=== PATIENT | male | born 1955 | race Caucasian/White ===

== ENCOUNTER 2019-01-01 10:10 | Inpatient (IN) | payer MEDICARE ==
[~2019-01-01] VITALS: Ht 185.4 cm; Wt 70.3 kg
[~2019-01-01 10:10] MED LIST: ASCO1500 PO; Aspirin PO; CALCIUM PO; CELE200C PO; CHOL10003 PO; CHOL500016 PO; FERR325T58 PO; HYDR-2680 PO; Hydrocodone Bit/Acetaminophen PO; Hydrocodone/Acetaminophen PO; MULT-18 PO; MULT-658 PO; OXYC1TAB15 PO; SERT25TA PO; SERT50TA8 PO; VIT1CAPS12 PO; VITA100022 PO; VITA400T4 PO; WARF-78 PO
[2019-01-01] MEDS ORDERED: DEXAMETHASONE 4 MG TABLET PO ONE (11:00)
--- NOTE | 2019-01-01 11:09 | PHYS DOC ---
Past Medical History Past Medical History: Other Additional Past Medical Histor: CHRONIC BACK PAIN, RIGHT MACULAR DEGENERATION DISEASE Past Surgical History: Tonsillectomy Additional Past Surgical Histo: RIGHT SHOULDER, HERNIA, HYDROCELE Smoking: Cigarettes Alcohol Use: Heavy Additional Information: 6 PACK OF BEER A DAY Drug Use: Marijuana Adult General Chief Complaint Chief Complaint: RINGING IN EARS HPI HPI Patient is a 63 year old male who presents with ringing in the ears and dizziness. 3 days ago he began to experience ringing in his hears, right ear fullness and right hearing loss. Those symptoms persisted until this morning when they became accompanied by dizziness and the sensation that "my head is swimming". He describes the dizziness as being disoriented and that the room spins. These symptoms are worsened by movement. He denies any URI symptoms recently. Patient is not experienced headache, numbness or tingling, weakness, chest pain, palpitations or nausea at this time. Review of Systems Review of Systems Constitutional: Denies fever or chills [] Eyes: Denies vision changes or diplopia. [] HENT: Reports right ear fullness and loss of hearing on right. Denies nasal congestion or sore throat [] Respiratory: Denies cough or shortness of breath [] Cardiovascular: Chest pain or palpitations [] GI: Denies abdominal pain, nausea, vomiting, or diarrhea [] : Denies dysuria or hematuria [] Musculoskeletal: Denies joint pain or muscular weakness [] Neurologic: Reports vertigo, unsteady gait and loss of hearing on right. Denies headache, focal weakness or sensory changes [] Complete review of systems found to be within normal limits, except as documented in this note. Current Medications Current Medications Current Medications Medications (Trade) Dose Ordered Sig/Carlin Start Time Stop Time Status Last Admin Dose Admin Dexamethasone (Decadron) 10 mg 1X ONCE 01/01/19 11:00 01/01/19 11:01 DC 01/01/19 11:23 10 MG Diazepam (Valium) 5 mg 1X ONCE 01/01/19 14:00 01/01/19 14:01 DC 01/01/19 13:52 5 MG Meclizine HCl (Antivert) 25 mg 1X ONCE 01/01/19 11:30 01/01/19 11:31 DC 01/01/19 11:22 25 MG Sodium Chloride 1,000 ml @ 1,000 mls/hr 1X ONCE 01/01/19 11:30 01/01/19 12:29 DC 01/01/19 11:17 1,000 MLS/HR Allergies Allergies Allergies Coded Allergies Type Severity Reaction Last Updated Verified Silver Allergy Severe RASH AND BLISTERS 08/31/14 Yes copper Allergy Severe RASH AND BLISTERS 08/31/14 Yes gold Au 198 Allergy Severe RASH AND BLISTERS 08/31/14 Yes iron Allergy Severe RASH AND BLISTERS 08/31/14 Yes nickel Allergy Severe RASH AND BLISTERS 08/31/14 Yes tolnaftate Allergy Intermediate HIVES, RED RASH, RED BUMPS 08/31/14 Yes Physical Exam Physical Exam Constitutional: Well developed, well nourished, concerned about his dizziness. [] HENT: Normocephalic, atraumatic, tympanic membranes visualized b/l without erythema or effusion, oropharynx moist. [] Eyes: PERRLA, EOMI, no conjunctivitis or injection [] Neck: Supple and nontender. [] Cardiovascular:Heart rate regular rhythm, no murmur [] Lungs & Thorax: Bilateral breath sounds clear to auscultation [] Abdomen: Soft and nontender. [] Skin: Warm, dry, no erythema, no rash. [] Extremities: Radial and dorsalis pedis +2 b/l, cap refill < 2seconds. [] Neurologic: Alert and oriented, normal motor function, normal sensory function, no focal deficits noted. Krzysztof maneuver produces rotatory nystagmus.[] Psychologic: Affect normal, judgement normal, mood normal. [] Current Patient Data Vital Signs Vital Signs Date Time Temp Pulse Resp B/P (MAP) Pulse Ox O2 Delivery O2 Flow Rate FiO2 01/01/19 12:16 70 138/82 (100) 99 Room Air 01/01/19 10:17 97.7 18 97.7 Lab Values Laboratory Tests Test 01/01/19 11:20 White Blood Count 3.4 x10^3/uL (4.0-11.0) L Red Blood Count 5.10 x10^6/uL (4.30-5.70) Hemoglobin 15.1 g/dL (13.0-17.5) Hematocrit 45.9 % (39.0-53.0) Mean Corpuscular Volume 90 fL (79-100) Mean Corpuscular Hemoglobin 30 pg (25-35) Mean Corpuscular Hemoglobin Concent 33 g/dL (31-37) Red Cell Distribution Width 18.1 % (11.5-14.5) H Platelet Count 156 x10^3/uL (140-400) Neutrophils (%) (Auto) 55 % (31-73) Lymphocytes (%) (Auto) 32 % (24-48) Monocytes (%) (Auto) 12 % (0-9) H Eosinophils (%) (Auto) 0 % (0-3) Basophils (%) (Auto) 1 % (0-3) Neutrophils # (Auto) 1.9 x10^3uL (1.8-7.7) Lymphocytes # (Auto) 1.1 x10^3/uL (1.0-4.8) Monocytes # (Auto) 0.4 x10^3/uL (0.0-1.1) Eosinophils # (Auto) 0.0 x10^3/uL (0.0-0.7) Basophils # (Auto) 0.0 x10^3/uL (0.0-0.2) Sodium Level 134 mmol/L (136-145) L Potassium Level 4.7 mmol/L (3.5-5.1) Chloride Level 97 mmol/L (98-107) L Carbon Dioxide Level 27 mmol/L (21-32) Anion Gap 10 (6-14) Blood Urea Nitrogen 3 mg/dL (8-26) L Creatinine 0.7 mg/dL (0.7-1.3) Estimated GFR (Cockcroft-Gault) 113.2 BUN/Creatinine Ratio 4 (6-20) L Glucose Level 93 mg/dL (70-99) Calcium Level 9.2 mg/dL (8.5-10.1) Magnesium Level 1.9 mg/dL (1.8-2.4) Total Bilirubin 0.9 mg/dL (0.2-1.0) Aspartate Amino Transferase (AST) 127 U/L (15-37) H Alanine Aminotransferase (ALT) 74 U/L (16-63) H Alkaline Phosphatase 98 U/L (46-116) Troponin I Quantitative < 0.017 ng/mL (0.000-0.055) Total Protein 6.6 g/dL (6.4-8.2) Albumin 3.2 g/dL (3.4-5.0) L Albumin/Globulin Ratio 0.9 (1.0-1.7) L Laboratory Tests 01/01/19 11:20 Laboratory Tests 01/01/19 11:20 EKG EKG @1025: Normal sinus rhythm with rate of 69. Normal axis. No Q waves present. No ST segment elevation or depression. No T wave inversion.[] Radiology/Procedures Radiology/Procedures PROCEDURE: CT HEAD WO CONTRAST CT HEAD INDICATION: Dizziness COMPARISON: None Available. Exposure: One or more of the following individualized dose reduction techniques were utilized for this examination: 1. Automated exposure control 2. Adjustment of the mA and/or kV according to patient size 3. Use of iterative reconstruction technique TECHNIQUE: 5 mm contiguous axial images were obtained from the skull base to the vertex in both bone and soft tissue algorithm. FINDINGS: Mild bilateral periventricular white matter hypodensities likely chronic small vessel ischemic disease. No evidence of acute intracranial hemorrhage. No extra-axial fluid collections. No mass effect or midline shift. Ventricular size is appropriate. Basal cisterns are patent. No fractures identified.Mae-white differentiation is preserved.Globes and orbits are within normal limits. Mild mucosal thickening left maxillary sinus. IMPRESSION: No acute intracranial findings. Electronically signed by: Jam Yan MD (01/01/2019 12:02 PM) [id number][] Course & Med Decision Making Course & Med Decision Making Pertinent Labs and Imaging studies reviewed. (See chart for details) Patient is a 63 year old male who presents with tinnitus and right hearing loss for 2 days that progressed to vertigo this morning. Physical exam showed rotatory nystagmus on Krzysztof maneuver and decreased hearing on right. Test of skew negative. CT of head showed evidence of small vessel disease but no acute abnormalities. EKG was unremarkable. CBC, CMP and troponin negative. Patient was given meclizine and dexamethasone without improvement of his symptoms. Dis cussed with patient that his symptoms are likely due to a peripheral etiology of vertigo such as BPPV or labyrinthitis however it would be beneficial for him to receive further evaluation as an inpatient especially given his persistent vertigo and unsteady gait. He has a history of osteoporosis and agrees that he does not want to have another fracture from possibly falling at home. Patient requiring admission for further evaluation and treatment. Discussed with Dr. Castillo who is in agreement with admission. Discussed findings and plan with patient and family, who acknowledge understanding and agreement. [] Dragon Disclaimer Dragon Disclaimer This electronic medical record was generated, in whole or in part, using a voice recognition dictation system. Departure Departure Impression: Primary Impression: Vertigo Additional Impression: Tinnitus Disposition: 09 ADMITTED INPATIENT Admitting Physician: Other Condition: STABLE Referrals: JANETTE COLBERT MD (PCP) Problem Qualifiers Additional Impression: Tinnitus Laterality: right Qualified Codes: H93.11 - Tinnitus, right ear JOSEPH ZHOU DO January 01, 2019 11:09
[2019-01-01] MEDS ORDERED: IV NORMAL SALINE 1000ML BAG 1,000 ML IV ONE (11:30)
[2019-01-01] MEDS ORDERED: MECLIZINE HCL 12.5 MG TABLET. PO ONE (11:30)
[2019-01-01 11:34] LABS: BASO % 1 % (0-3); EOS % 0 % (0-3); HEMATOCRIT 45.9 % (39.0-53.0); HEMOGLOBIN 15.1 g/dL (13.0-17.5); LYMPH # 1.1 x10^3/uL (1.0-4.8); LYMPH % 32 % (24-48); MEAN CORPUSCULAR HEMOGLOBIN 30 pg (25-35); MEAN CORPUSCULAR HGB CONC 33 g/dL (31-37); MEAN CORPUSCULAR VOLUME 90 fL (79-100); MONO # 0.4 x10^3/uL (0.0-1.1); MONO % 12 % (0-9); NEUT # 1.9 x10^3uL (1.8-7.7); NEUT % 55 % (31-73); PLATELET COUNT 156 x10^3/uL (140-400); RED CELL DISTRIBUTION WIDTH 18.1 % (11.5-14.5); WHITE BLOOD COUNT 3.4 x10^3/uL (4.0-11.0)
[2019-01-01 11:37] LABS: CALCIUM 9.2 mg/dL (8.5-10.1); CREATININE 0.7 mg/dL (0.7-1.3); GFR 113.2; POTASSIUM 4.7 mmol/L (3.5-5.1)
[2019-01-01 11:43] LABS: ALBUMIN 3.2 g/dL (3.4-5.0); ALBUMIN/GLOBULIN RATIO 0.9 (1.0-1.7); MAGNESIUM 1.9 mg/dL (1.8-2.4); TOTAL BILIRUBIN 0.9 mg/dL (0.2-1.0); TOTAL PROTEIN 6.6 g/dL (6.4-8.2)
--- NOTE | 2019-01-01 11:53 | EKG ---
[facility] [address] [place] [address] Test Date: 2019-01-01 Test Time: 10:25:51 Pat Name: LEMUEL VEGA Department: Room: Gender: M Digital Forensic Examiner: : 1955 Requested By: JOSEPH ZHOU Order Number: [id number] Reading MD: Diego Mckee Measurements Intervals [place] Rate: 69 P: 66 CO: 174 QRS: 38 QRSD: 76 T: 49 QT: 400 QTc: 430 Interpretive Statements SINUS RHYTHM NORMAL ECG Electronically Signed On 01-23-2019 12:14:10 CDT by Diego Mckee
--- NOTE | 2019-01-01 12:05 | RAD ---
CT HEAD INDICATION: Dizziness COMPARISON: None Available. Exposure: One or more of the following individualized dose reduction techniques were utilized for this examination: 1. Automated exposure control 2. Adjustment of the mA and/or kV according to patient size 3. Use of iterative reconstruction technique TECHNIQUE: 5 mm contiguous axial images were obtained from the skull base to the vertex in both bone and soft tissue algorithm. FINDINGS: Mild bilateral periventricular white matter hypodensities likely chronic small vessel ischemic disease. No evidence of acute intracranial hemorrhage. No extra-axial fluid collections. No mass effect or midline shift. Ventricular size is appropriate. Basal cisterns are patent. No fractures identified.Mae-white differentiation is preserved.Globes and orbits are within normal limits. Mild mucosal thickening left maxillary sinus. IMPRESSION: No acute intracranial findings. Electronically signed by: Jam Yan MD (01/01/2019 12:02 PM) [id number]
[2019-01-01] MEDS ORDERED: diazePAM 5 MG TABLET PO ONE (14:00)
--- NOTE | 2019-01-01 14:21 | PDOC1 ---
History and Physical Date of Admission Date of Admission DATE: 01/01/19 TIME: 14:20 Identification/Chief Complaint Chief Complaint Dizzy, unable to walk Source Source: Patient History of Present Illness History of Present Illness Mr Cantor is a 63 year old male w/ PMHx heavy ETOH use, R wet macular degeneration, chronic LBP who presents with tinnitus and right ear hearing loss for 3 days (started Saturday) that progressed to vertigo this morning suddenly at 0430. He feels temporarily confused when this occurs as well. Physical exam showed rotatory nystagmus on Krzysztof maneuver to right and decreased hearing on right, cleaned both ears of cerumen with no improvement. Test of skew negative. CT of head showed evidence of small vessel disease but no acute abnormalities. EKG was unremarkable. CBC, CMP and troponin negative. AST and ALT elevated in 2:1 ratio. Patient was given meclizine and dexamethasone without improvement of his symptoms. Discussed with patient that his symptoms are likely due to a peripheral etiology of vertigo such as BPPV or labyrinthitis however it would be beneficial for him to receive further evaluation as an inpatient especially given his persistent vertigo and unsteady gait. He has a history of osteoporosis and agrees that he does not want to have another fracture from possibly falling at home. On further ROS he notes he has lost 20-25# over the past few months, and has been losing his appetite more lately. He is a smoker of cigars and cigarillos, stopped cigarettes about 6 years ago, drinks a 6-pack [place] light or more of beer per day and had colonoscopy over 10 years ago. Past Medical History Cardiovascular: No pertinent hx Pulmonary: No pertinent hx GI: No pertinent hx Heme/Onc: No pertinent hx Hepatobiliary: No pertinent hx Psych: No pertinent hx Musculoskeletal: low back pain Rheumatologic: No pertinent hx Infectious disease: No pertinent hx ENT: Other (Macular degeneration) Renal/: No pertinent hx Endocrine: No pertinent hx Dermatology: No pertinent hx Past Surgical History Past Surgical History: Total knee replacement (Left), Tonsillectomy Family History Family History: No Significant Social History Smoke: 1 pack per day ALCOHOL: heavy Drugs: None Current Problem List Problem List Problems Medical Problems: (1) Tinnitus Status: Acute (2) Vertigo Status: Acute Current Medications Current Medications Current Medications Dexamethasone (Decadron) 10 mg 1X ONCE PO Last administered on 01/01/19at 11:23; Start 01/01/19 at 11:00; Stop 01/01/19 at 11:01; Status DC Meclizine HCl (Antivert) 25 mg 1X ONCE PO Last administered on 01/01/19at 11:22; Start 01/01/19 at 11:30; Stop 01/01/19 at 11:31; Status DC Sodium Chloride 1,000 ml @ 1,000 mls/hr 1X ONCE IV Last administered on 01/01/19at 11:17; Start 01/01/19 at 11:30; Stop 01/01/19 at 12:29; Status DC Diazepam (Valium) 5 mg 1X ONCE PO Last administered on 01/01/19at 13:52; Start 01/01/19 at 14:00; Stop 01/01/19 at 14:01; Status DC Ondansetron HCl (Zofran) 4 mg PRN Q8HRS PRN IV NAUSEA/VOMITING; Start 01/01/19 at 14:30; Stop 01/02/19 at 14:29; Status UNV Active Scripts Active [Hydrocodone/Acetaminophen] 1 TAB Tablet 1 Tab PO PRN Q3HRS PRN Reported Percocet 5-325 Mg Tablet (Oxycodone/Acetaminophen) 1 Each Tablet 1-2 Tab PO Q4- 6HRS Iron Supplement (Ferrous Sulfate) 325 Mg Tablet 1 Tab PO DAILY Last dose given: Not taken whil in hosp. May resume at home as directed Coumadin (Warfarin Sodium) 5 Mg Tablet 1 Tab PO 1X PRN Last dose given: Next dose due: 09-04-14 5:00 p.m. Celebrex (Celecoxib) 200 Mg Capsule 200 Mg PO DAILY 30 Days Last dose given: 8:30 a.m. Next dose due: 09-04-14 8:30 a.m. Centrum Silver Tablet (Multivits-Min/Fa/Lycopene/Lut) 1 Each Tablet 1 Each PO Last dose given: 8:30 a.m. Next dose due: 09-04-14 8:30 a.m. [Calcium] 1,200 Mg PO DAILY Last dose given: 8:30 a.m. Next dose due: 09-04-14 8:30 a.m. Vitamin D3 (Cholecalciferol (Vitamin D3)) 5,000 Unit Tablet 5,000 Unit PO Last dose given: 8:30 a.m. Next dose due: 09-04-14 8:30 a.m. Preservision Areds Softgel (Vit A/Vit C/Vit E/Zinc/Copper) 1 Each Capsule 1 Each PO Not taken while in hosp. May resume at home as directed Sertraline Hcl 50 Mg Tablet 50 Mg PO HS Last dose given: 09-02-14 9:00 p.m. Next dose due: tonight Allergies Allergies: Coded Allergies: Silver (Verified Allergy, Severe, RASH AND BLISTERS, 08/31/14) METALS copper (Verified Allergy, Severe, RASH AND BLISTERS, 08/31/14) METALS gold Au 198 (Verified Allergy, Severe, RASH AND BLISTERS, 08/31/14) ALL METAL iron (Verified Allergy, Severe, RASH AND BLISTERS, 08/31/14) ALL METAL nickel (Verified Allergy, Severe, RASH AND BLISTERS, 08/31/14) ALL METALS tolnaftate (Verified Allergy, Intermediate, HIVES, RED RASH, RED BUMPS, 08/31/14) ROS General: YES: Fatigue, Malaise, Appetite; No: Chills, Night Sweats, Other PSYCHOLOGICAL ROS: YES: Anxiety; No: Behavioral Disorder, Concentration difficultie, Decreased libido, Depression, Disorientation, Hallucinations, Hostility, Irritablity, Memory difficulties, Mood Swings, Obsessive thoughts, Physical abuse, Sexual abuse, Sleep disturbances, Suicidal ideation, Other Eyes: No Blurry vision, No Decreased vision, No Double vision, No Dry eyes, No Excessive tearing, No Eye Pain, No Itchy Eyes, No Loss of vision, No Photophobia, No Scotomata, No Uses contacts, No Uses glasses, No Other HEENT: YES: Hearing change, Tinnitus, Vertigo; No: Heacaches, Visual Changes, Nasal congestion, Nasal discharge, Oral lesions, Sinus pain, Sore Throat, Epistaxis, Sneezing, Snoring, Vocal changes, Other ALLERGY AND IMMUNOLOGY: No: Hives, Insect Bite Sensitivity, Itchy/Watery Eyes, Nasal Congestion, Post Nasal Drip, Seasonal Allergies, Other Hematological and Lymphatic: No: Bleeding Problems, Blood Clots, Blood Transfusions, Brusing, Night Sweats, Pallor, Swollen Lymph Nodes, Other ENDOCRINE: No: Breast Changes, Galactorrhea, Hair Pattern Changes, Hot Flashes, Malaise/lethargy, Mood Swings, Palpitations, Polydipsia/polyuria, Skin Changes, Temperature Intolerance, Unexpected Weight Changes, Other Breast: No New/Changing Breast Lumps, No Nipple changes, No Nipple discharge, No Other Respiratory: No: Cough, Hemoptysis, Orthopnea, Pleuritic Pain, Shortness of breath, SOB with excertion, Sputum Changes, Stridor, Tachypnea, Wheezing, Other Cardiovascular: No Chest Pain, No Palpitations, No Orthopnea, No Paroxysmal Noc. Dyspnea, No Edema, No Lt Headedness, No Other Gastrointestinal: Yes Nausea; No Vomiting, No Abdominal Pain, No Diarrhea, No Constipation, No Melena, No Hematochezia, No Other Genitourinary: No Dysuria, No Frequency, No Incontinence, No Hematuria, No Retention, No Discharge, No Urgency, No Pain, No Flank Pain, No Other, No , No , No , No , No , No , No Musculoskeletal: Yes Gait Disturbance; No Joint Pain, No Joint Stiffness, No Joint Swelling, No Muscle Pain, No Muscular Weakness, No Pain In:, No Swelling In:, No Other Neurological: Yes Confusion, Yes Dizziness, Yes Gait Disturbance, Yes Impaired Coord/balance; No Behavorial Changes, No Bowel/Bladder ControlChng, No Headaches, No Memory Loss, No Numbness/Tingling, No Seizures, No Speech Problems, No Tremors, No Visual Changes, No Weakness, No Other Skin: No Dry Skin, No Eczema, No Hair Changes, No Lumps, No Mole Changes, No Mottling, No Nail Changes, No Pruritus, No Rash, No Skin Lesion Changes, No Other, No Acne Physical Exam General: Alert, Oriented X3, Cooperative, No acute distress HEENT: Atraumatic, PERRLA, EOMI, Mucous membr. moist/pink Lungs: Clear to auscultation, Normal air movement Heart: S1S2, RRR, no gallops, no murmurs Abdomen: Normal bowel sounds, Soft, No tenderness, No hepatosplenomegaly, No masses Male Genitals Exam: normal genitalia, normal prostate Rectal Exam: not examined Extremities: No clubbing, No cyanosis, No edema, Normal pulses, No tenderness/swelling Skin: No rashes, No breakdown, No significant lesion Neuro: Normal speech, Strength at 5/5 X4 ext, Normal tone, Sensation intact, Cranial nerves 3-12 NL, Reflexes 2+, Other (Positive R rotatory nystagmus) Psych/Mental Status: Mental status NL, Mood NL Vitals Vitals Vital Signs Date Time Temp Pulse Resp B/P (MAP) Pulse Ox O2 Delivery O2 Flow Rate FiO2 01/01/19 12:16 70 138/82 (100) 99 Room Air 01/01/19 10:17 97.7 18 97.7 Labs Labs Laboratory Tests Test 01/01/19 11:20 White Blood Count 3.4 x10^3/uL (4.0-11.0) Red Blood Count 5.10 x10^6/uL (4.30-5.70) Hemoglobin 15.1 g/dL (13.0-17.5) Hematocrit 45.9 % (39.0-53.0) Mean Corpuscular Volume 90 fL (79-100) Mean Corpuscular Hemoglobin 30 pg (25-35) Mean Corpuscular Hemoglobin Concent 33 g/dL (31-37) Red Cell Distribution Width 18.1 % (11.5-14.5) Platelet Count 156 x10^3/uL (140-400) Neutrophils (%) (Auto) 55 % (31-73) Lymphocytes (%) (Auto) 32 % (24-48) Monocytes (%) (Auto) 12 % (0-9) Eosinophils (%) (Auto) 0 % (0-3) Basophils (%) (Auto) 1 % (0-3) Neutrophils # (Auto) 1.9 x10^3uL (1.8-7.7) Lymphocytes # (Auto) 1.1 x10^3/uL (1.0-4.8) Monocytes # (Auto) 0.4 x10^3/uL (0.0-1.1) Eosinophils # (Auto) 0.0 x10^3/uL (0.0-0.7) Basophils # (Auto) 0.0 x10^3/uL (0.0-0.2) Sodium Level 134 mmol/L (136-145) Potassium Level 4.7 mmol/L (3.5-5.1) Chloride Level 97 mmol/L (98-107) Carbon Dioxide Level 27 mmol/L (21-32) Anion Gap 10 (6-14) Blood Urea Nitrogen 3 mg/dL (8-26) Creatinine 0.7 mg/dL (0.7-1.3) Estimated GFR (Cockcroft-Gault) 113.2 BUN/Creatinine Ratio 4 (6-20) Glucose Level 93 mg/dL (70-99) Calcium Level 9.2 mg/dL (8.5-10.1) Magnesium Level 1.9 mg/dL (1.8-2.4) Total Bilirubin 0.9 mg/dL (0.2-1.0) Aspartate Amino Transf (AST/SGOT) 127 U/L (15-37) Alanine Aminotransferase (ALT/SGPT) 74 U/L (16-63) Alkaline Phosphatase 98 U/L (46-116) Troponin I Quantitative < 0.017 ng/mL (0.000-0.055) Total Protein 6.6 g/dL (6.4-8.2) Albumin 3.2 g/dL (3.4-5.0) Albumin/Globulin Ratio 0.9 (1.0-1.7) Laboratory Tests Test 01/01/19 11:20 White Blood Count 3.4 x10^3/uL (4.0-11.0) Red Blood Count 5.10 x10^6/uL (4.30-5.70) Hemoglobin 15.1 g/dL (13.0-17.5) Hematocrit 45.9 % (39.0-53.0) Mean Corpuscular Volume 90 fL (79-100) Mean Corpuscular Hemoglobin 30 pg (25-35) Mean Corpuscular Hemoglobin Concent 33 g/dL (31-37) Red Cell Distribution Width 18.1 % (11.5-14.5) Platelet Count 156 x10^3/uL (140-400) Neutrophils (%) (Auto) 55 % (31-73) Lymphocytes (%) (Auto) 32 % (24-48) Monocytes (%) (Auto) 12 % (0-9) Eosinophils (%) (Auto) 0 % (0-3) Basophils (%) (Auto) 1 % (0-3) Neutrophils # (Auto) 1.9 x10^3uL (1.8-7.7) Lymphocytes # (Auto) 1.1 x10^3/uL (1.0-4.8) Monocytes # (Auto) 0.4 x10^3/uL (0.0-1.1) Eosinophils # (Auto) 0.0 x10^3/uL (0.0-0.7) Basophils # (Auto) 0.0 x10^3/uL (0.0-0.2) Sodium Level 134 mmol/L (136-145) Potassium Level 4.7 mmol/L (3.5-5.1) Chloride Level 97 mmol/L (98-107) Carbon Dioxide Level 27 mmol/L (21-32) Anion Gap 10 (6-14) Blood Urea Nitrogen 3 mg/dL (8-26) Creatinine 0.7 mg/dL (0.7-1.3) Estimated GFR (Cockcroft-Gault) 113.2 BUN/Creatinine Ratio 4 (6-20) Glucose Level 93 mg/dL (70-99) Calcium Level 9.2 mg/dL (8.5-10.1) Magnesium Level 1.9 mg/dL (1.8-2.4) Total Bilirubin 0.9 mg/dL (0.2-1.0) Aspartate Amino Transf (AST/SGOT) 127 U/L (15-37) Alanine Aminotransferase (ALT/SGPT) 74 U/L (16-63) Alkaline Phosphatase 98 U/L (46-116) Troponin I Quantitative < 0.017 ng/mL (0.000-0.055) Total Protein 6.6 g/dL (6.4-8.2) Albumin 3.2 g/dL (3.4-5.0) Albumin/Globulin Ratio 0.9 (1.0-1.7) Images Images CT head - No acute intracranial findings. VTE Prophylaxis Ordered VTE Prophylaxis Devices: Yes VTE Pharmacological Prophylaxi: Yes Assessment/Plan Assessment/Plan A/P: Vertigo - positive for BPPV on examination. PT to continue maneuvers. Will give meclizine, benadryl prn. Could also be vestibular neuronitis given his hearing loss. CT head negative, may need MRI Right hearing loss - could be neurologic, will consult neurology Unintentional weight loss - was 176# last seen in our system, 149# today. Will order CT chest/abd/pelvis Transaminitis - consistent with alcoholic hepatitis, will place on CIWA and banana bag Smoker - counseled on cessation Gait instability - needs PT for his vertigo FEN - general diet PPX - Lovenox FULL CODE Inpatient for being unable to walk, vertigo, unintentional weight loss for likely 2 midnights. SARBJIT RAM MD January 01, 2019 14:21
[2019-01-01] MEDS ORDERED: ONDANSETRON PF 4 MG/2 ML VIAL. IV PRN ×2 (14:30→16:15)
[2019-01-01 15:00] VITALS: BP 136/83
[2019-01-01] MEDS ORDERED: MECLIZINE HCL 12.5 MG TABLET. PO PRN (16:15)
[2019-01-01] MEDS ORDERED: ACETAMINOPHEN 325 MG TABLET. PO PRN (16:15)
[2019-01-01] MEDS ORDERED: diphenhydrAMINE 50 MG/ML VIAL IVP PRN (16:15)
[2019-01-01] MEDS ORDERED: oxyCODONE/APAP 5/325 1 TAB TABLET PO PRN (16:15)
[2019-01-01] MEDS ORDERED: IOHEXOL 240 MG/ML 50ML VIAL. PO ONE (17:00)
[2019-01-01] MEDS ORDERED: LORazepam 1 MG TABLET PO PRN (17:00)
[2019-01-01] MEDS ORDERED: cloNIDine HCL 0.1 MG TABLET PO PRN (17:00)
[2019-01-01] MEDS ORDERED: CONTRAST GIVEN. MC PRN (17:00)
[2019-01-01] MEDS ORDERED: IOHEXOL 300 MG/ML 100ML VIAL. IV ONE (17:00)
[2019-01-01] MEDS ORDERED: THIAMINE INJ 100 MG in IV DEXTROSE 5% 50 ML IV ONE (17:15)
--- NOTE | 2019-01-01 17:41 | PDOC2 ---
NEUROLOGY CONSULT Date of Admission Date of Admission DATE: 01/01/19 TIME: 17:28 Reason for Consult Reason for Consult: IMPRESSION: Dizziness x 1 day. Vertigo x 1 day. Ataxia x 1 day. Right side hearing loss x 3 day. Elevated hepatic enzymes. Drinking > 50 years. RECOMMENDATIONS/PLAN: Vit B1 100 mg daily. Brain MRI w/wo contrast. Lab: see orders. Treat medical diseases. Alcohol abstinence. HISTORY OF THE PRESENT ILLNESS: This is a 63-year-old male w/ PMHx heavy ETOH use/abuse about 6 bees a day since teenage age. He stated he suddenly lost hearing in his right ear 3 days ago and unable to hear since. He developed symptoms of dizziness, vertigo, gait unsteadiness, ataxia, vertigo feeling room spining and self spinning since this morning, so he came to the ER of [facility] for medical attention. He stated his symptoms became worse when he turned his head to the right side. Neurology noted consultation request after 5:00 pm. Past Medical History Cardiovascular: No pertinent hx Pulmonary: No pertinent hx GI: No pertinent hx Heme/Onc: No pertinent hx Hepatobiliary: No pertinent hx Psych: No pertinent hx Musculoskeletal: low back pain Rheumatologic: No pertinent hx Infectious disease: No pertinent hx ENT: Other (Macular degeneration) Renal/: No pertinent hx Endocrine: No pertinent hx Dermatology: No pertinent hx Past Surgical History Total knee replacement (Left), Tonsillectomy Family History No Significant Social History Smoke: 1 pack per day since teenage age, but quit smoking several years ago, and then chew tobaccos. ALCOHOL: heavy, about 6 beers a day for more than 50 years. Drugs: None Allergies Coded Allergies: Silver (Verified Allergy, Severe, RASH AND BLISTERS, 08/31/14) METALS copper (Verified Allergy, Severe, RASH AND BLISTERS, 08/31/14) METALS gold Au 198 (Verified Allergy, Severe, RASH AND BLISTERS, 08/31/14) ALL METAL iron (Verified Allergy, Severe, RASH AND BLISTERS, 08/31/14) ALL METAL nickel (Verified Allergy, Severe, RASH AND BLISTERS, 08/31/14) ALL METALS tolnaftate (Verified Allergy, Intermediate, HIVES, RED RASH, RED BUMPS, 08/31/14) MEDICATIONS: Refer to [facility] REVIEW OF SYSTEMS: Constitutional: No cachexia. Head: No traumatic brain or head injury. Skin: No edema, or rash. Ear: Hearing loss 3 days ago, tinnitus. Eyes: No vision loss or color blindness. Nose: No bleeding or purulent discharges. Hearing: Right side hearing loss. Neck: No injury. Cardiac: No VA, arrhythmia. Pulmonary: smoking in past.. GI: No GI ulcer, GI bleeding. Urinary/genital: No dysuria, incontinence, urinary retention. Endocrinologic: No cousin face, craniofacial dysmorphism, polydactyly. Skeletomuscular: No muscular atrophy, deformity. Neurological: see HP. Psychiatric: alcohol use/abuse. Otherwise, not [id number] review of systems. PHYSICAL EXAMINATION: General appearance is in subacute distress. HEENT: Normocephalic and nontraumatic. Eyes, nose, ears, and throat are unremarkable. Neck is supple. No lymphadenopathy. No crepitus. Cardiovascular: S1, S2, regular rate and rhythm. Pulmonary: Clear to auscultation bilaterally. Abdomen: Bowel sounds are positive. Abdomen is soft, nontender, and nondistended. Extremities: No rash, lesions, or edema. No restriction of range of motion NEUROLOGICAL EXAMINATION: Awake. Oriented to time, place and person. PERRL. EOMI. CN: no focal findings. Muscle tone: within normal. Muscle strength: 5 DTR: 2 Plantar reflex: Flexor response bilaterally Gait: Unable to walk due to gait instability. Sensory exam: no abnormal findings. No obvious cerebellar signs elicited. F-T-N test fine. Current Medications Current Medications Current Medications Dexamethasone (Decadron) 10 mg 1X ONCE PO Last administered on 01/01/19 11:23; Start 01/01/19 at 11:00; Stop 01/01/19 at 11:01; Status DC Meclizine HCl (Antivert) 25 mg 1X ONCE PO Last administered on 01/01/19 11:22; Start 01/01/19 at 11:30; Stop 01/01/19 at 11:31; Status DC Sodium Chloride 1,000 ml @ 1,000 mls/hr 1X ONCE IV Last administered on 01/01/19 11:17; Start 01/01/19 at 11:30; Stop 01/01/19 at 12:29; Status DC Diazepam (Valium) 5 mg 1X ONCE PO Last administered on 01/01/19at 13:52; Start 01/01/19 at 14:00; Stop 01/01/19 at 14:01; Status DC Ondansetron HCl (Zofran) 4 mg PRN Q8HRS PRN IV NAUSEA/VOMITING; Start 01/01/19 at 14:30; Stop 01/01/19 at 17:02; Status DC Ondansetron HCl (Zofran) 4 mg PRN Q6HRS PRN IV NAUSEA/VOMITING; Start 01/01/19 at 16:15 Acetaminophen (Tylenol) 650 mg PRN Q6HRS PRN PO Headaches, Temp > 101.5F; Start 01/01/19 at 16:15 Senna/Docusate Sodium (Senna Plus) 1 tab BID PO ; Start 01/01/19 at 21:00 Enoxaparin Sodium (Lovenox 40mg Syringe) 40 mg Q24H SQ ; Start 01/01/19 at 21:00 Ferrous Sulfate (Feosol) 325 mg DAILY PO ; Start 01/02/19 at 09:00 Oxycodone/ Acetaminophen (Percocet 5/325) 1 tab PRN Q6HRS PRN PO pain; Start 01/01/19 at 16:15 Sertraline HCl (Zoloft) 50 mg HS PO ; Start 01/01/19 at 21:00 Vitamin D (Vitamin D3) 5,000 unit DAILY PO ; Start 01/02/19 at 09:00 Meclizine HCl (Antivert) 12.5 mg PRN Q6HRS PRN PO DIZZINESS; Start 01/01/19 at 16:15 Diphenhydramine HCl (Benadryl) 25 mg PRN Q6HRS PRN IVP DIZZINESS; Start 01/01/19 at 16:15 Mirtazapine (Remeron) 15 mg QHS PO ; Start 01/01/19 at 21:00 Iohexol (Omnipaque 240 Mg/ml) 30 ml 1X ONCE PO ; Start 01/01/19 at 17:00; Stop 01/01/19 at 17:01; Status DC Iohexol (Omnipaque 300 Mg/ml) 75 ml 1X ONCE IV ; Start 01/01/19 at 17:00; Stop 01/01/19 at 17:01; Status DC Info (CONTRAST GIVEN -- Rx MONITORING) 1 each PRN DAILY PRN MC SEE COMMENTS; Start 01/01/19 at 17:00; Stop 01/03/19 at 16:59 Multivitamins 10 ml/Thiamine HCl 100 mg/Folic Acid 1 mg/Sodium Chloride 1,011.2 ml @ 100 mls/ hr DAILY IV ; Start 01/01/19 at 18:00; Stop 01/05/19 at 19:07 Lorazepam (Ativan) 2 mg PRN Q1HR PRN PO For CIWA 8-14; Start 01/01/19 at 17:00 Lorazepam (Ativan Inj) 2 mg PRN Q1HR PRN IV For CIWA 8-14; Start 01/01/19 at 17:00 Clonidine HCl (Catapres) 0.1 mg PRN Q1HR PRN PO SBP > 180 or DBP > 100, MRX3; Start 01/01/19 at 17:00 Thiamine HCl 100 mg/Dextrose 51 ml @ 102 mls/hr 1X ONCE IV ; Start 01/01/19 at 17:15; Stop 01/01/19 at 17:44; Status UNV Active Scripts Active [Hydrocodone/Acetaminophen] 1 TAB Tablet 1 Tab PO PRN Q3HRS PRN Reported Percocet 5-325 Mg Tablet (Oxycodone/Acetaminophen) 1 Each Tablet 1-2 Tab PO Q4- 6HRS Iron Supplement (Ferrous Sulfate) 325 Mg Tablet 1 Tab PO DAILY Last dose given: Not taken whil in hosp. May resume at home as directed Coumadin (Warfarin Sodium) 5 Mg Tablet 1 Tab PO 1X PRN Last dose given: Next dose due: 09-04-14 5:00 p.m. Celebrex (Celecoxib) 200 Mg Capsule 200 Mg PO DAILY 30 Days Last dose given: 8:30 a.m. Next dose due: 09-04-14 8:30 a.m. Centrum Silver Tablet (Multivits-Min/Fa/Lycopene/Lut) 1 Each Tablet 1 Each PO Last dose given: 8:30 a.m. Next dose due: 09-04-14 8:30 a.m. [Calcium] 1,200 Mg PO DAILY Last dose given: 8:30 a.m. Next dose due: 09-04-14 8:30 a.m. Vitamin D3 (Cholecalciferol (Vitamin D3)) 5,000 Unit Tablet 5,000 Unit PO Last dose given: 8:30 a.m. Next dose due: 09-04-14 8:30 a.m. Preservision Areds Softgel (Vit A/Vit C/Vit E/Zinc/Copper) 1 Each Capsule 1 Each PO Not taken while in hosp. May resume at home as directed Sertraline Hcl 50 Mg Tablet 50 Mg PO HS Last dose given: 09-02-14 9:00 p.m. Next dose due: tonight Allergies Allergies: Allergies Coded Allergies Type Severity Reaction Last Updated Verified Silver Allergy Severe RASH AND BLISTERS 08/31/14 Yes copper Allergy Severe RASH AND BLISTERS 08/31/14 Yes gold Au 198 Allergy Severe RASH AND BLISTERS 08/31/14 Yes iron Allergy Severe RASH AND BLISTERS 08/31/14 Yes nickel Allergy Severe RASH AND BLISTERS 08/31/14 Yes tolnaftate Allergy Intermediate HIVES, RED RASH, RED BUMPS 08/31/14 Yes ROS Review of System The patient denies any associated fevers, chills, headache, ear pain, rhinorrhea, sore throat, stiff neck, productive cough, chest pain, shortness of breath, back or flank pain, abdominal pain, nausea, vomiting, diarrhea, constipation, dysuria, rash, numbness, weakness, tingling, incontinence, difficulty ambulating, or diaphoresis. Physical Exam Physical Exam General: Well developed, well nourished, no acute distress, well appearing HEENT: Pupils equally round and reactive to light, EOMI, no discharge, normal conjunctiva Neck: Supple, no nuchal rigidity, no JVD, trachea midline, no tenderness Cardiac: RRR, no murmurs, no gallops, no rubs Chest/Lungs: CTAB, no wheeze, no rhonchi, no crackles Abdomen: soft, non-distended, no guarding, no peritoneal signs, non-tender Back: No tenderness Extremities: no edema, pulses intact, non-tender,capillary refill <3 sec bilateral upper and lower extremities, Neuro: Alert and oriented x 4, no focal deficits, normal speech Vitals Vitals: Vital Signs Date Time Temp Pulse Resp B/P (MAP) Pulse Ox O2 Delivery O2 Flow Rate FiO2 01/01/19 15:00 97.9 71 17 136/83 (100) 97 Room Air 97.9 Labs Labs Laboratory Tests Test 01/01/19 11:20 White Blood Count 3.4 x10^3/uL (4.0-11.0) Red Blood Count 5.10 x10^6/uL (4.30-5.70) Hemoglobin 15.1 g/dL (13.0-17.5) Hematocrit 45.9 % (39.0-53.0) Mean Corpuscular Volume 90 fL (79-100) Mean Corpuscular Hemoglobin 30 pg (25-35) Mean Corpuscular Hemoglobin Concent 33 g/dL (31-37) Red Cell Distribution Width 18.1 % (11.5-14.5) Platelet Count 156 x10^3/uL (140-400) Neutrophils (%) (Auto) 55 % (31-73) Lymphocytes (%) (Auto) 32 % (24-48) Monocytes (%) (Auto) 12 % (0-9) Eosinophils (%) (Auto) 0 % (0-3) Basophils (%) (Auto) 1 % (0-3) Neutrophils # (Auto) 1.9 x10^3uL (1.8-7.7) Lymphocytes # (Auto) 1.1 x10^3/uL (1.0-4.8) Monocytes # (Auto) 0.4 x10^3/uL (0.0-1.1) Eosinophils # (Auto) 0.0 x10^3/uL (0.0-0.7) Basophils # (Auto) 0.0 x10^3/uL (0.0-0.2) Sodium Level 134 mmol/L (136-145) Potassium Level 4.7 mmol/L (3.5-5.1) Chloride Level 97 mmol/L (98-107) Carbon Dioxide Level 27 mmol/L (21-32) Anion Gap 10 (6-14) Blood Urea Nitrogen 3 mg/dL (8-26) Creatinine 0.7 mg/dL (0.7-1.3) Estimated GFR (Cockcroft-Gault) 113.2 BUN/Creatinine Ratio 4 (6-20) Glucose Level 93 mg/dL (70-99) Calcium Level 9.2 mg/dL (8.5-10.1) Phosphorus Level 3.3 mg/dL (2.6-4.7) Magnesium Level 1.9 mg/dL (1.8-2.4) Total Bilirubin 0.9 mg/dL (0.2-1.0) Aspartate Amino Transf (AST/SGOT) 127 U/L (15-37) Alanine Aminotransferase (ALT/SGPT) 74 U/L (16-63) Alkaline Phosphatase 98 U/L (46-116) Troponin I Quantitative < 0.017 ng/mL (0.000-0.055) Total Protein 6.6 g/dL (6.4-8.2) Albumin 3.2 g/dL (3.4-5.0) Albumin/Globulin Ratio 0.9 (1.0-1.7) Thyroid Stimulating Hormone (TSH) 1.447 uIU/mL (0.358-3.74) Laboratory Tests Test 01/01/19 11:20 White Blood Count 3.4 x10^3/uL (4.0-11.0) Red Blood Count 5.10 x10^6/uL (4.30-5.70) Hemoglobin 15.1 g/dL (13.0-17.5) Hematocrit 45.9 % (39.0-53.0) Mean Corpuscular Volume 90 fL (79-100) Mean Corpuscular Hemoglobin 30 pg (25-35) Mean Corpuscular Hemoglobin Concent 33 g/dL (31-37) Red Cell Distribution Width 18.1 % (11.5-14.5) Platelet Count 156 x10^3/uL (140-400) Neutrophils (%) (Auto) 55 % (31-73) Lymphocytes (%) (Auto) 32 % (24-48) Monocytes (%) (Auto) 12 % (0-9) Eosinophils (%) (Auto) 0 % (0-3) Basophils (%) (Auto) 1 % (0-3) Neutrophils # (Auto) 1.9 x10^3uL (1.8-7.7) Lymphocytes # (Auto) 1.1 x10^3/uL (1.0-4.8) Monocytes # (Auto) 0.4 x10^3/uL (0.0-1.1) Eosinophils # (Auto) 0.0 x10^3/uL (0.0-0.7) Basophils # (Auto) 0.0 x10^3/uL (0.0-0.2) Sodium Level 134 mmol/L (136-145) Potassium Level 4.7 mmol/L (3.5-5.1) Chloride Level 97 mmol/L (98-107) Carbon Dioxide Level 27 mmol/L (21-32) Anion Gap 10 (6-14) Blood Urea Nitrogen 3 mg/dL (8-26) Creatinine 0.7 mg/dL (0.7-1.3) Estimated GFR (Cockcroft-Gault) 113.2 BUN/Creatinine Ratio 4 (6-20) Glucose Level 93 mg/dL (70-99) Calcium Level 9.2 mg/dL (8.5-10.1) Phosphorus Level 3.3 mg/dL (2.6-4.7) Magnesium Level 1.9 mg/dL (1.8-2.4) Total Bilirubin 0.9 mg/dL (0.2-1.0) Aspartate Amino Transf (AST/SGOT) 127 U/L (15-37) Alanine Aminotransferase (ALT/SGPT) 74 U/L (16-63) Alkaline Phosphatase 98 U/L (46-116) Troponin I Quantitative < 0.017 ng/mL (0.000-0.055) Total Protein 6.6 g/dL (6.4-8.2) Albumin 3.2 g/dL (3.4-5.0) Albumin/Globulin Ratio 0.9 (1.0-1.7) Thyroid Stimulating Hormone (TSH) 1.447 uIU/mL (0.358-3.74) LENY RAMÍREZ MD January 01, 2019 17:41
[2019-01-01] MEDS: MULTIVIT INFUSN,ADULT 4,VIT K 10 ML, THIAMINE INJ 100 MG, FOLIC ACID INJ 1 MG in IV NOR... IV SCH (17:44)
[2019-01-01 19:43] VITALS: BP 138/77
[2019-01-01] MEDS: MIRTAZAPINE 15 MG TABLET PO SCH (21:56)
[2019-01-01] MEDS: ENOXAPARIN 40 MG/0.4 ML SYRINGE. SQ SCH (21:57)
[2019-01-01] MEDS: SERTRALINE 50 MG TABLET. PO SCH (21:57)
[2019-01-01] MEDS: SENNOSIDES/DOCUSATE 8.6/50MG TABLET. PO SCH (21:57)
[2019-01-01 23:11] VITALS: BP 107/66
[2019-01-02 03:20] VITALS: BP 113/74
[2019-01-02 05:25] LABS: ALBUMIN 2.6 g/dL (3.4-5.0); ALBUMIN/GLOBULIN RATIO 0.8 (1.0-1.7); CALCIUM 8.5 mg/dL (8.5-10.1); CREATININE 0.6 mg/dL (0.7-1.3); GFR 135.2; POTASSIUM 3.8 mmol/L (3.5-5.1); TOTAL BILIRUBIN 0.7 mg/dL (0.2-1.0); TOTAL PROTEIN 5.7 g/dL (6.4-8.2)
[2019-01-02 05:56] LABS: CHOLESTEROL/HDL RATIO 1.6
[2019-01-02 07:00] VITALS: BP 121/82
--- NOTE | 2019-01-02 08:19 | RAD ---
CT of the chest, abdomen and pelvis with contrast, 01/01/2019: HISTORY: Weight loss, smoker Multidetector CT imaging was performed following oral and IV administration of contrast. There is mild calcific plaquing of the thoracic aorta and its branches without evidence of aneurysm. Mild scattered coronary artery calcifications are present. The heart is not enlarged. There is no evidence of mediastinal or hilar adenopathy. There are calcified granulomata in both lungs. There is an adjacent linear opacity related to a granuloma in the lateral aspect of the right upper lobe, compatible scarring. Small subpleural blebs are present in the upper lobes. There is minimal calcific pleural-parenchymal scarring over the apices. A 4 mm pulmonary nodule is noted laterally in the right lower lobe on axial image 51 of series #2. The coronal images show that it is somewhat elongated in configuration There is a 5 mm groundglass opacity in the left upper lobe laterally as seen on axial image 39 of series #2. There is no evidence of pleural fluid. There is no evidence of a hepatic mass or bile duct dilatation. The gallbladder is unremarkable. No pancreatic abnormality is seen. The spleen is of normal size. A small cyst is present laterally in the right kidney. The kidneys show no evidence of obstruction. No adrenal abnormality is detected. There is moderate aortoiliac calcific plaquing with only slight dilatation of the infrarenal abdominal aorta which measures 2.7 cm. No abdominal or pelvic adenopathy is seen. The prostate gland measures 4.3 cm in width. There is mild diffuse bladder wall thickening, which may be related to the lack of bladder distention or mild chronic bladder outlet obstruction. The bowel loops are not dilated. The appendix is visualized and shows no abnormality. No free fluid is evident in the abdomen or pelvis. There is minimal dilatation of the left inguinal ring containing primarily fat. No bowel herniation is evident. Moderate multilevel degenerative changes are present in the spine. IMPRESSION: 1. Emphysema. 2. Old healed granulomatous disease in the chest. 3. Tiny bilateral pulmonary nodules. Considering the patient's smoking history, CT follow-up is suggested. 4. Coronary artery calcifications. 5. Additional miscellaneous chronic findings as described above. PQRS Compliance Statement: One or more of the following individualized dose reduction techniques were utilized for this examination: 1. Automated exposure control 2. Adjustment of the mA and/or kV according to patient size 3. Use of iterative reconstruction technique Electronically signed by: Jamie Brody MD (01/02/2019 8:16 AM) [facility]
[2019-01-02 09:37] LABS: BARBITURATES NEG (NEG); BENZODIAZEPINES NEG (NEG); CANNABINOIDS POS (NEG); COCAINE NEG (NEG); METHADONE NEG (NEG); OPIATES NEG (NEG); PHENCYCLIDINE NEG (NEG)
[2019-01-02 09:40] LABS: AMPHETAMINE/METHAMPHETAMINE NEG (NEG)
[2019-01-02] MEDS ORDERED: GADOTERATE 7.5 MMOL/15ML VIAL. IVP ONE (10:00)
[2019-01-02] MEDS: FERROUS SULFATE 325 MG TABLET. PO SCH (10:21)
[2019-01-02] MEDS: SENNOSIDES/DOCUSATE 8.6/50MG TABLET. PO SCH ×2 (10:21→20:22)
[2019-01-02] MEDS: CHOLECALCIFEROL (VITAMIN D3) 5,000 UNIT CAPSULE PO SCH (10:21)
[2019-01-02] MEDS: MULTIVIT INFUSN,ADULT 4,VIT K 10 ML, THIAMINE INJ 100 MG, FOLIC ACID INJ 1 MG in IV NOR... IV SCH (10:22)
--- NOTE | 2019-01-02 10:59 | RAD ---
MRI Brain with and without contrast History: Right hearing loss, dizziness, ataxia Technique: Multiplanar, multi sequential pre and postcontrast MR imaging was performed of the brain. Comparison: None Findings: There is no evidence of recent infarct or cytotoxic edema. Ventricular size is within normal limits. There is mild supratentorial atrophy more greatly affecting parietal lobes.There is no significant midline shift, intraaxial mass effect, or focal abnormal extra-axial fluid collection. There are some scattered very mild T2 and FLAIR hyperintense signal abnormality of the supratentorial parenchyma bilaterally greatest of the frontal parietal white matter. There is no nodular parenchymal or leptomeningeal enhancement. There is preservation of the major intracranial flow-voids at the skull base. The cerebellar tonsils are normal in location. There is no significant abnormality of the pineal gland or pituitary gland. There is moderate to severe left maxillary sinus mucosal thickening. There is patchy mild to moderate ethmoid air cell mucosal thickening greater anteriorly. The mastoid air cells are aerated. There is preserved marrow signal of the clivus. There is a 1.3 cm focus of signal abnormality underlying skin surface the right occipital region, possibly complex sebaceous cyst although nonspecific. Impression: 1. There is no abnormal intracranial enhancement or evidence of recent infarct. 2. There is mild supratentorial atrophy more greatly affecting the parietal lobes. 3. Very mild T2 and FLAIR hyperintense signal of the supratentorial parenchyma is nonspecific, may be due to chronic microvascular ischemic disease. 4. There is moderate to severe left maxillary sinus mucosal thickening. Electronically signed by: Oli Jensen MD (01/02/2019 10:56 AM) [id number]
[2019-01-02 11:27] VITALS: BP 126/81
--- NOTE | 2019-01-02 14:53 | PDOC ---
PROGRESS NOTES Chief Complaint Chief Complaint Vertigo - positive for BPPV on examination. PT to continue maneuvers. Will give meclizine, benadryl prn. Could also be vestibular neuronitis given his hearing loss. CT head negative, may need MRI Right hearing loss - central etiology unlikely in light of normal work up. Unintentional weight loss - CT unremarkable Transaminitis - consistent with alcoholic hepatitis, will place on CIWA and banana bag Smoker - counseled on cessation Gait instability - needs PT for his vertigo Plan: habituation maneurvers will try meclizine but if this is a vestibular neuronitis he may not have much relief will reassess in the am will follow resutls of b12 levels. further recomemndations based on the clincal course. History of Present Illness History of Present Illness Patient laying in bed in no apparent distress. The patient is quite concerned about his hearing loss. He does not seem to have neurological deficits at the time my evaluation except for his hearing loss on the right side. No buzzing in the ears no sensation of fullness no nausea or vomiting plan of care has been extreme detail all of his concerns address to the best of my abilities Vitals Vitals Vital Signs Date Time Temp Pulse Resp B/P (MAP) Pulse Ox O2 Delivery O2 Flow Rate FiO2 01/02/19 11:27 97.4 57 18 126/81 (96) 100 Room Air 97.4 Physical Exam General: Alert, Oriented X3, Cooperative, No acute distress Lungs: Clear Abdomen: Normal bowel sounds, Soft, No tenderness, No hepatosplenomegaly, No masses Extremities: No clubbing, No cyanosis, No edema, Normal pulses, No tenderness/swelling Skin: No rashes, No breakdown, No significant lesion Labs LABS Laboratory Tests Test 01/01/19 17:05 01/01/19 20:30 01/02/19 03:53 01/02/19 09:30 Troponin I Quantitative < 0.017 ng/mL (0.000-0.055) < 0.017 ng/mL (0.000-0.055) Sodium Level 133 mmol/L (136-145) Potassium Level 3.8 mmol/L (3.5-5.1) Chloride Level 97 mmol/L (98-107) Carbon Dioxide Level 24 mmol/L (21-32) Anion Gap 12 (6-14) Blood Urea Nitrogen 5 mg/dL (8-26) Creatinine 0.6 mg/dL (0.7-1.3) Estimated GFR (Cockcroft-Gault) 135.2 BUN/Creatinine Ratio 8 (6-20) Glucose Level 143 mg/dL (70-99) Calcium Level 8.5 mg/dL (8.5-10.1) Total Bilirubin 0.7 mg/dL (0.2-1.0) Aspartate Amino Transf (AST/SGOT) 72 U/L (15-37) Alanine Aminotransferase (ALT/SGPT) 57 U/L (16-63) Alkaline Phosphatase 87 U/L (46-116) Total Protein 5.7 g/dL (6.4-8.2) Albumin 2.6 g/dL (3.4-5.0) Albumin/Globulin Ratio 0.8 (1.0-1.7) Triglycerides Level 34 mg/dL (0-150) Cholesterol Level 188 mg/dL (0-200) LDL Cholesterol, Calculated 62 mg/dL (0-100) VLDL Cholesterol, Calculated 7 mg/dL (0-40) Non-HDL Cholesterol Calculated 69 mg/dL (0-129) HDL Cholesterol 119 mg/dL (40-60) Cholesterol/HDL Ratio 1.6 Urine Opiates Screen Neg (NEG) Urine Methadone Screen Neg (NEG) Urine Barbiturates Neg (NEG) Urine Phencyclidine Screen Neg (NEG) Urine Amphetamine/Methamphetamine Neg (NEG) Urine Benzodiazepines Screen Neg (NEG) Urine Cocaine Screen Neg (NEG) Urine Cannabinoids Screen Pos (NEG) Urine Ethyl Alcohol Negh (NEG) Assessment and Plan Assessmemt and Plan Problems Medical Problems: (1) Tinnitus Status: Acute (2) Vertigo Status: Acute Comment Review of Relevant I have reviewed the following items axel (where applicable) has been applied. Labs Laboratory Tests Test 01/01/19 11:20 01/01/19 17:05 01/01/19 20:30 01/02/19 03:53 White Blood Count 3.4 x10^3/uL (4.0-11.0) Red Blood Count 5.10 x10^6/uL (4.30-5.70) Hemoglobin 15.1 g/dL (13.0-17.5) Hematocrit 45.9 % (39.0-53.0) Mean Corpuscular Volume 90 fL (79-100) Mean Corpuscular Hemoglobin 30 pg (25-35) Mean Corpuscular Hemoglobin Concent 33 g/dL (31-37) Red Cell Distribution Width 18.1 % (11.5-14.5) Platelet Count 156 x10^3/uL (140-400) Neutrophils (%) (Auto) 55 % (31-73) Lymphocytes (%) (Auto) 32 % (24-48) Monocytes (%) (Auto) 12 % (0-9) Eosinophils (%) (Auto) 0 % (0-3) Basophils (%) (Auto) 1 % (0-3) Neutrophils # (Auto) 1.9 x10^3uL (1.8-7.7) Lymphocytes # (Auto) 1.1 x10^3/uL (1.0-4.8) Monocytes # (Auto) 0.4 x10^3/uL (0.0-1.1) Eosinophils # (Auto) 0.0 x10^3/uL (0.0-0.7) Basophils # (Auto) 0.0 x10^3/uL (0.0-0.2) Sodium Level 134 mmol/L (136-145) 133 mmol/L (136-145) Potassium Level 4.7 mmol/L (3.5-5.1) 3.8 mmol/L (3.5-5.1) Chloride Level 97 mmol/L (98-107) 97 mmol/L (98-107) Carbon Dioxide Level 27 mmol/L (21-32) 24 mmol/L (21-32) Anion Gap 10 (6-14) 12 (6-14) Blood Urea Nitrogen 3 mg/dL (8-26) 5 mg/dL (8-26) Creatinine 0.7 mg/dL (0.7-1.3) 0.6 mg/dL (0.7-1.3) Estimated GFR (Cockcroft-Gault) 113.2 135.2 BUN/Creatinine Ratio 4 (6-20) 8 (6-20) Glucose Level 93 mg/dL (70-99) 143 mg/dL (70-99) Calcium Level 9.2 mg/dL (8.5-10.1) 8.5 mg/dL (8.5-10.1) Phosphorus Level 3.3 mg/dL (2.6-4.7) Magnesium Level 1.9 mg/dL (1.8-2.4) Total Bilirubin 0.9 mg/dL (0.2-1.0) 0.7 mg/dL (0.2-1.0) Aspartate Amino Transf (AST/SGOT) 127 U/L (15-37) 72 U/L (15-37) Alanine Aminotransferase (ALT/SGPT) 74 U/L (16-63) 57 U/L (16-63) Alkaline Phosphatase 98 U/L (46-116) 87 U/L (46-116) Troponin I Quantitative < 0.017 ng/mL (0.000-0.055) < 0.017 ng/mL (0.000-0.055) < 0.017 ng/mL (0.000-0.055) Total Protein 6.6 g/dL (6.4-8.2) 5.7 g/dL (6.4-8.2) Albumin 3.2 g/dL (3.4-5.0) 2.6 g/dL (3.4-5.0) Albumin/Globulin Ratio 0.9 (1.0-1.7) 0.8 (1.0-1.7) Vitamin B12 Level 777 pg/mL (247-911) Thyroid Stimulating Hormone (TSH) 1.447 uIU/mL (0.358-3.74) Triglycerides Level 34 mg/dL (0-150) Cholesterol Level 188 mg/dL (0-200) LDL Cholesterol, Calculated 62 mg/dL (0-100) VLDL Cholesterol, Calculated 7 mg/dL (0-40) Non-HDL Cholesterol Calculated 69 mg/dL (0-129) HDL Cholesterol 119 mg/dL (40-60) Cholesterol/HDL Ratio 1.6 Test 01/02/19 09:30 Urine Opiates Screen Neg (NEG) Urine Methadone Screen Neg (NEG) Urine Barbiturates Neg (NEG) Urine Phencyclidine Screen Neg (NEG) Urine Amphetamine/Methamphetamine Neg (NEG) Urine Benzodiazepines Screen Neg (NEG) Urine Cocaine Screen Neg (NEG) Urine Cannabinoids Screen Pos (NEG) Urine Ethyl Alcohol Negh (NEG) Laboratory Tests Test 01/01/19 17:05 01/01/19 20:30 5/17/19 03:53 01/02/19 09:30 Troponin I Quantitative < 0.017 ng/mL (0.000-0.055) < 0.017 ng/mL (0.000-0.055) Sodium Level 133 mmol/L (136-145) Potassium Level 3.8 mmol/L (3.5-5.1) Chloride Level 97 mmol/L (98-107) Carbon Dioxide Level 24 mmol/L (21-32) Anion Gap 12 (6-14) Blood Urea Nitrogen 5 mg/dL (8-26) Creatinine 0.6 mg/dL (0.7-1.3) Estimated GFR (Cockcroft-Gault) 135.2 BUN/Creatinine Ratio 8 (6-20) Glucose Level 143 mg/dL (70-99) Calcium Level 8.5 mg/dL (8.5-10.1) Total Bilirubin 0.7 mg/dL (0.2-1.0) Aspartate Amino Transf (AST/SGOT) 72 U/L (15-37) Alanine Aminotransferase (ALT/SGPT) 57 U/L (16-63) Alkaline Phosphatase 87 U/L (46-116) Total Protein 5.7 g/dL (6.4-8.2) Albumin 2.6 g/dL (3.4-5.0) Albumin/Globulin Ratio 0.8 (1.0-1.7) Triglycerides Level 34 mg/dL (0-150) Cholesterol Level 188 mg/dL (0-200) LDL Cholesterol, Calculated 62 mg/dL (0-100) VLDL Cholesterol, Calculated 7 mg/dL (0-40) Non-HDL Cholesterol Calculated 69 mg/dL (0-129) HDL Cholesterol 119 mg/dL (40-60) Cholesterol/HDL Ratio 1.6 Urine Opiates Screen Neg (NEG) Urine Methadone Screen Neg (NEG) Urine Barbiturates Neg (NEG) Urine Phencyclidine Screen Neg (NEG) Urine Amphetamine/Methamphetamine Neg (NEG) Urine Benzodiazepines Screen Neg (NEG) Urine Cocaine Screen Neg (NEG) Urine Cannabinoids Screen Pos (NEG) Urine Ethyl Alcohol Negh (NEG) Medications Current Medications Dexamethasone (Decadron) 10 mg 1X ONCE PO Last administered on 01/01/19at 11:23; Start 01/01/19 at 11:00; Stop 01/01/19 at 11:01; Status DC Meclizine HCl (Antivert) 25 mg 1X ONCE PO Last administered on 01/01/19 11:22; Start 01/01/19 at 11:30; Stop 01/01/19 at 11:31; Status DC Sodium Chloride 1,000 ml @ 1,000 mls/hr 1X ONCE IV Last administered on 01/01/19 11:17; Start 01/01/19 at 11:30; Stop 01/01/19 at 12:29; Status DC Diazepam (Valium) 5 mg 1X ONCE PO Last administered on 01/01/19at 13:52; Start 01/01/19 at 14:00; Stop 01/01/19 at 14:01; Status DC Ondansetron HCl (Zofran) 4 mg PRN Q8HRS PRN IV NAUSEA/VOMITING; Start 01/01/19 at 14:30; Stop 01/01/19 at 17:02; Status DC Ondansetron HCl (Zofran) 4 mg PRN Q6HRS PRN IV NAUSEA/VOMITING; Start 01/01/19 at 16:15 Acetaminophen (Tylenol) 650 mg PRN Q6HRS PRN PO Headaches, Temp > 101.5F; Start 01/01/19 at 16:15 Senna/Docusate Sodium (Senna Plus) 1 tab BID PO Last administered on 01/02/19at 10:21; Start 01/01/19 at 21:00 Enoxaparin Sodium (Lovenox 40mg Syringe) 40 mg Q24H SQ Last administered on 01/01/19at 21:57; Start 01/01/19 at 21:00 Ferrous Sulfate (Feosol) 325 mg DAILY PO Last administered on 01/02/19at 10:21; Start 01/02/19 at 09:00 Oxycodone/ Acetaminophen (Percocet 5/325) 1 tab PRN Q6HRS PRN PO pain; Start 01/01/19 at 16:15 Sertraline HCl (Zoloft) 50 mg HS PO Last administered on 01/01/19at 21:57; Start 01/01/19 at 21:00 Vitamin D (Vitamin D3) 5,000 unit DAILY PO Last administered on 01/02/19at 10:21 ; Start 01/02/19 at 09:00 Meclizine HCl (Antivert) 12.5 mg PRN Q6HRS PRN PO DIZZINESS; Start 01/01/19 at 16:15 Diphenhydramine HCl (Benadryl) 25 mg PRN Q6HRS PRN IVP DIZZINESS; Start 01/01/19 at 16:15 Mirtazapine (Remeron) 15 mg QHS PO Last administered on 01/01/19at 21:56; Start 01/01/19 at 21:00 Iohexol (Omnipaque 240 Mg/ml) 30 ml 1X ONCE PO Last administered on 01/01/19at 17:00; Start 01/01/19 at 17:00; Stop 01/01/19 at 17:01; Status DC Iohexol (Omnipaque 300 Mg/ml) 75 ml 1X ONCE IV Last administered on 01/01/19at 17:00; Start 01/01/19 at 17:00; Stop 01/01/19 at 17:01; Status DC Info (CONTRAST GIVEN -- Rx MONITORING) 1 each PRN DAILY PRN MC SEE COMMENTS; Start 01/01/19 at 17:00; Stop 01/03/19 at 16:59 Multivitamins 10 ml/Thiamine HCl 100 mg/Folic Acid 1 mg/Sodium Chloride 1,011.2 ml @ 100 mls/ hr DAILY IV Last administered on 01/02/19at 10:22; Start 01/01/19 at 18:00; Stop 01/05/19 at 19:07 Lorazepam (Ativan) 2 mg PRN Q1HR PRN PO For CIWA 8-14; Start 01/01/19 at 17:00 Lorazepam (Ativan Inj) 2 mg PRN Q1HR PRN IV For CIWA 8-14; Start 01/01/19 at 17:00 Clonidine HCl (Catapres) 0.1 mg PRN Q1HR PRN PO SBP > 180 or DBP > 100, MRX3; Start 01/01/19 at 17:00 Thiamine HCl 100 mg/Dextrose 51 ml @ 102 mls/hr 1X ONCE IV ; Start 01/01/19 at 17:15; Stop 01/01/19 at 17:44; Status UNV Gadoterate Meglumine (Dotarem) 14 ml 1X ONCE IVP Last administered on 01/02/19at 10:05; Start 01/02/19 at 10:00; Stop 01/02/19 at 10:01; Status DC Active Scripts Active [Hydrocodone/Acetaminophen] 1 TAB Tablet 1 Tab PO PRN Q3HRS PRN Reported Percocet 5-325 Mg Tablet (Oxycodone/Acetaminophen) 1 Each Tablet 1-2 Tab PO Q4- 6HRS Iron Supplement (Ferrous Sulfate) 325 Mg Tablet 1 Tab PO DAILY Last dose given: Not taken whil in hosp. May resume at home as directed Coumadin (Warfarin Sodium) 5 Mg Tablet 1 Tab PO 1X PRN Last dose given: Next dose due: 09-04-14 5:00 p.m. Celebrex (Celecoxib) 200 Mg Capsule 200 Mg PO DAILY 30 Days Last dose given: 8:30 a.m. Next dose due: 09-04-14 8:30 a.m. Centrum Silver Tablet (Multivits-Min/Fa/Lycopene/Lut) 1 Each Tablet 1 Each PO Last dose given: 8:30 a.m. Next dose due: 09-04-14 8:30 a.m. [Calcium] 1,200 Mg PO DAILY Last dose given: 8:30 a.m. Next dose due: 09-04-14 8:30 a.m. Vitamin D3 (Cholecalciferol (Vitamin D3)) 5,000 Unit Tablet 5,000 Unit PO Last dose given: 8:30 a.m. Next dose due: 09-04-14 8:30 a.m. Preservision Areds Softgel (Vit A/Vit C/Vit E/Zinc/Copper) 1 Each Capsule 1 Each PO Not taken while in hosp. May resume at home as directed Sertraline Hcl 50 Mg Tablet 50 Mg PO HS Last dose given: 09-02-14 9:00 p.m. Next dose due: tonight Vitals/I & O Vital Sign - Last 24 Hours 01/01/19 01/01/19 01/01/19 01/02/19 15:00 19:43 23:11 03:20 Temp 97.9 97.4 98.6 97.5 97.9 97.4 98.6 97.5 Pulse 71 74 78 64 Resp 17 20 18 18 B/P (MAP) 136/83 (100) 138/77 (97) 107/66 (80) 113/74 (87) Pulse Ox 97 99 96 96 O2 Delivery Room Air Room Air Room Air Room Air 01/02/19 01/02/19 07:00 11:27 Temp 98.3 97.4 98.3 97.4 Pulse 59 57 Resp 20 18 B/P (MAP) 121/82 (95) 126/81 (96) Pulse Ox 96 100 O2 Delivery Room Air Room Air Intake and Output 01/01/19 01/01/19 01/02/19 15:00 23:00 07:00 Intake Total 1000 ml 0 ml 920 ml Balance 1000 ml 0 ml 920 ml Nutrition Consultation Dietary Evaluation: Recommendations by RD: Increase Calorie Intake, Protein supplementation Comments: ensure enlive tid and prn Expected Outcomes/Goals: to meet > 75% est nutrition needs Interpretation of weight loss: >7.5% in 3 months Malnutrition Findings: Body Fat Depletion (Non Severe: Mild Depletion Weight Status: Underweight DAVID SCHAEFFER MD January 02, 2019 14:53
[2019-01-02 15:58] VITALS: BP 125/81
--- NOTE | 2019-01-02 16:09 | PDOC ---
PROGRESS NOTES Assessment Assessment Dizziness x 1 day before admission. Vertigo x 1 day. Ataxia x 1 day. Right side hearing loss x 3 day. Elevated hepatic enzymes. Drinking > 50 years. No evidence of acute CVA this time. RECOMMENDATIONS/PLAN: Vit B1 100 mg daily. Treat medical diseases. Alcohol abstinence. See ENT specialist. Patient education for marijuana abstinence. Discussed with his daughter in detail at bedside on 01/02/19. HISTORY OF THE PRESENT ILLNESS: This is a 63-year-old male w/ PMHx heavy ETOH use/abuse about 6 bees a day since teenage age. He stated he suddenly lost hearing in his right ear 3 days ago and unable to hear since. He developed symptoms of dizziness, vertigo, gait unsteadiness, ataxia, vertigo feeling room spinning and self spinning since this morning, so he came to the ER of [facility] for medical attention. He stated his symptoms became worse when he turned his head to the right side. Neurology noted consultation request after 5:00 pm. His symptoms of dizziness and vertigo improved on 01/02/19. Past Medical History Cardiovascular: No pertinent hx Pulmonary: No pertinent hx GI: No pertinent hx Heme/Onc: No pertinent hx Hepatobiliary: No pertinent hx Psych: No pertinent hx Musculoskeletal: low back pain Rheumatologic: No pertinent hx Infectious disease: No pertinent hx ENT: Other (Macular degeneration) Renal/: No pertinent hx Endocrine: No pertinent hx Dermatology: No pertinent hx Past Surgical History Total knee replacement (Left), Tonsillectomy Family History No Significant Social History Smoke: 1 pack per day since teenage age, but quit smoking several years ago, and then chew tobaccos. ALCOHOL: heavy, about 6 beers a day for more than 50 years. Drugs: None Allergies Coded Allergies: Silver (Verified Allergy, Severe, RASH AND BLISTERS, 08/31/14) METALS copper (Verified Allergy, Severe, RASH AND BLISTERS, 08/31/14) METALS gold Au 198 (Verified Allergy, Severe, RASH AND BLISTERS, 08/31/14) ALL METAL iron (Verified Allergy, Severe, RASH AND BLISTERS, 08/31/14) ALL METAL nickel (Verified Allergy, Severe, RASH AND BLISTERS, 08/31/14) ALL METALS tolnaftate (Verified Allergy, Intermediate, HIVES, RED RASH, RED BUMPS, 08/31/14) MEDICATIONS: Refer to MAR REVIEW OF SYSTEMS: Constitutional: No cachexia. Head: No traumatic brain or head injury. Skin: No edema, or rash. Ear: Hearing loss 3 days ago, tinnitus. Eyes: No vision loss or color blindness. Nose: No bleeding or purulent discharges. Hearing: Right side hearing loss. Neck: No injury. Cardiac: No MT, arrhythmia. Pulmonary: smoking in past.. GI: No GI ulcer, GI bleeding. Urinary/genital: No dysuria, incontinence, urinary retention. Endocrinologic: No cousin face, craniofacial dysmorphism, polydactyly. Skeletomuscular: No muscular atrophy, deformity. Neurological: see HP. Psychiatric: alcohol use/abuse. Otherwise, not [id number] review of systems. PHYSICAL EXAMINATION: General appearance is in subacute distress. HEENT: Normocephalic and nontraumatic. Eyes, nose, ears, and throat are unremarkable. Neck is supple. No lymphadenopathy. No crepitus. Cardiovascular: S1, S2, regular rate and rhythm. Pulmonary: Clear to auscultation bilaterally. Abdomen: Bowel sounds are positive. Abdomen is soft, nontender, and nondistended. Extremities: No rash, lesions, or edema. No restriction of range of motion NEUROLOGICAL EXAMINATION: Awake. Oriented to time, place and person. PERRL. EOMI. CN: no focal findings. Muscle tone: within normal. Muscle strength: 5 DTR: 2 Plantar reflex: Flexor response bilaterally Gait: Unable to walk due to gait instability. Sensory exam: no abnormal findings. No obvious cerebellar signs elicited. F-T-N test fine. Objective Objective Vital Signs Date Time Temp Pulse Resp B/P (MAP) Pulse Ox O2 Delivery O2 Flow Rate FiO2 01/02/19 15:58 98.1 70 18 125/81 (96) 97 Room Air 98.1 Intake and Output 01/02/19 07:00 Intake Total 1920 ml Balance 1920 ml Intake Oral 920 ml IV Total 1000 ml # Voids 1 Vitals Signs Vitals VS - Last 72 Hours, by Label Date Time Temp Pulse Resp B/P (MAP) Pulse Ox O2 Delivery O2 Flow Rate FiO2 01/02/19 15:58 98.1 70 18 125/81 (96) 97 Room Air 98.1 01/02/19 11:27 97.4 57 18 126/81 (96) 100 Room Air 97.4 01/02/19 07:00 98.3 59 20 121/82 (95) 96 Room Air 98.3 01/02/19 03:20 97.5 64 18 113/74 (87) 96 Room Air 97.5 01/01/19 23:11 98.6 78 18 107/66 (80) 96 Room Air 98.6 01/01/19 19:43 97.4 74 20 138/77 (97) 99 Room Air 97.4 01/01/19 15:00 97.9 71 17 136/83 (100) 97 Room Air 97.9 01/01/19 12:16 70 138/82 (100) 99 Room Air 01/01/19 11:46 68 149/76 (100) 99 Room Air 01/01/19 11:14 68 124/80 (95) 100 Room Air 01/01/19 10:17 97.7 74 18 161/86 (111) 100 Room Air 97.7 Laboratory Laboratory Laboratory Tests Test 01/01/19 17:05 01/01/19 20:30 01/02/19 03:53 01/02/19 09:30 Troponin I Quantitative < 0.017 ng/mL (0.000-0.055) < 0.017 ng/mL (0.000-0.055) Sodium Level 133 mmol/L (136-145) Potassium Level 3.8 mmol/L (3.5-5.1) Chloride Level 97 mmol/L (98-107) Carbon Dioxide Level 24 mmol/L (21-32) Anion Gap 12 (6-14) Blood Urea Nitrogen 5 mg/dL (8-26) Creatinine 0.6 mg/dL (0.7-1.3) Estimated GFR (Cockcroft-Gault) 135.2 BUN/Creatinine Ratio 8 (6-20) Glucose Level 143 mg/dL (70-99) Calcium Level 8.5 mg/dL (8.5-10.1) Total Bilirubin 0.7 mg/dL (0.2-1.0) Aspartate Amino Transf (AST/SGOT) 72 U/L (15-37) Alanine Aminotransferase (ALT/SGPT) 57 U/L (16-63) Alkaline Phosphatase 87 U/L (46-116) Total Protein 5.7 g/dL (6.4-8.2) Albumin 2.6 g/dL (3.4-5.0) Albumin/Globulin Ratio 0.8 (1.0-1.7) Triglycerides Level 34 mg/dL (0-150) Cholesterol Level 188 mg/dL (0-200) LDL Cholesterol, Calculated 62 mg/dL (0-100) VLDL Cholesterol, Calculated 7 mg/dL (0-40) Non-HDL Cholesterol Calculated 69 mg/dL (0-129) HDL Cholesterol 119 mg/dL (40-60) Cholesterol/HDL Ratio 1.6 Urine Opiates Screen Neg (NEG) Urine Methadone Screen Neg (NEG) Urine Barbiturates Neg (NEG) Urine Phencyclidine Screen Neg (NEG) Urine Amphetamine/Methamphetamine Neg (NEG) Urine Benzodiazepines Screen Neg (NEG) Urine Cocaine Screen Neg (NEG) Urine Cannabinoids Screen Pos (NEG) Urine Ethyl Alcohol Negh (NEG) Medication Medications Current Medications Acetaminophen (Tylenol) 650 mg PRN Q6HRS PRN PO Headaches, Temp > 101.5F; Start 01/01/19 at 16:15 Clonidine HCl (Catapres) 0.1 mg PRN Q1HR PRN PO SBP > 180 or DBP > 100, MRX3; Start 01/01/19 at 17:00 Diphenhydramine HCl (Benadryl) 25 mg PRN Q6HRS PRN IVP DIZZINESS; Start 01/01/19 at 16:15 Enoxaparin Sodium (Lovenox 40mg Syringe) 40 mg Q24H SQ Last administered on 01/01/19at 21:57; Start 01/01/19 at 21:00 Ferrous Sulfate (Feosol) 325 mg DAILY PO Last administered on 01/02/19at 10:21; Start 01/02/19 at 09:00 Gadoterate Meglumine (Dotarem) 14 ml 1X ONCE IVP Last administered on 01/02/19at 10:05; Start 01/02/19 at 10:00; Stop 01/02/19 at 10:01; Status DC Info (CONTRAST GIVEN -- Rx MONITORING) 1 each PRN DAILY PRN MC SEE COMMENTS; Start 01/01/19 at 17:00; Stop 01/03/19 at 16:59 Iohexol (Omnipaque 240 Mg/ml) 30 ml 1X ONCE PO Last administered on 01/01/19at 17:00; Start 01/01/19 at 17:00; Stop 01/01/19 at 17:01; Status DC Iohexol (Omnipaque 300 Mg/ml) 75 ml 1X ONCE IV Last administered on 01/01/19at 17:00; Start 01/01/19 at 17:00; Stop 01/01/19 at 17:01; Status DC Lorazepam (Ativan Inj) 2 mg PRN Q1HR PRN IV For CIWA 8-14; Start 01/01/19 at 17:00 Lorazepam (Ativan) 2 mg PRN Q1HR PRN PO For CIWA 8-14; Start 01/01/19 at 17:00 Meclizine HCl (Antivert) 12.5 mg PRN Q6HRS PRN PO DIZZINESS Last administered on 01/02/19at 14:53; Start 01/01/19 at 16:15 Mirtazapine (Remeron) 15 mg QHS PO Last administered on 01/01/19at 21:56; Start 01/01/19 at 21:00 Multivitamins 10 ml/Thiamine HCl 100 mg/Folic Acid 1 mg/Sodium Chloride 1,011.2 ml @ 100 mls/ hr DAILY IV Last administered on 01/02/19at 10:22; Start 01/01/19 at 18:00; Stop 01/05/19 at 19:07 Ondansetron HCl (Zofran) 4 mg PRN Q6HRS PRN IV NAUSEA/VOMITING; Start 01/01/19 at 16:15 Oxycodone/ Acetaminophen (Percocet 5/325) 1 tab PRN Q6HRS PRN PO pain; Start 01/01/19 at 16:15 Senna/Docusate Sodium (Senna Plus) 1 tab BID PO Last administered on 01/02/19at 10:21; Start 01/01/19 at 21:00 Sertraline HCl (Zoloft) 50 mg HS PO Last administered on 01/01/19at 21:57; Start 01/01/19 at 21:00 Thiamine HCl 100 mg/Dextrose 51 ml @ 102 mls/hr 1X ONCE IV ; Start 01/01/19 at 17:15; Stop 01/01/19 at 17:44; Status UNV Vitamin D (Vitamin D3) 5,000 unit DAILY PO Last administered on 01/02/19at 10:21; Start 01/02/19 at 09:00 Comment Review of Relevant I have reviewed the following items axel (where applicable) has been applied. LENY RAMÍREZ MD January 02, 2019 16:09
[2019-01-02 19:20] VITALS: BP 123/85
[2019-01-02] MEDS: SERTRALINE 50 MG TABLET. PO SCH (20:22)
[2019-01-02] MEDS: MIRTAZAPINE 15 MG TABLET PO SCH (20:22)
[2019-01-02] MEDS: ENOXAPARIN 40 MG/0.4 ML SYRINGE. SQ SCH (20:23)
[2019-01-02 23:00] VITALS: BP 111/76
[2019-01-03 03:35] VITALS: BP 120/76
[2019-01-03 07:20] VITALS: BP 129/86
[2019-01-03] MEDS ORDERED: MECLIZINE HCL 12.5 MG TABLET. PO PRN (08:00)
[2019-01-03] MEDS: SENNOSIDES/DOCUSATE 8.6/50MG TABLET. PO SCH (09:00)
[2019-01-03] MEDS: MULTIVIT INFUSN,ADULT 4,VIT K 10 ML, THIAMINE INJ 100 MG, FOLIC ACID INJ 1 MG in IV NOR... IV SCH (09:33)
[2019-01-03] MEDS: CHOLECALCIFEROL (VITAMIN D3) 5,000 UNIT CAPSULE PO SCH (09:34)
[2019-01-03] MEDS: FERROUS SULFATE 325 MG TABLET. PO SCH (09:34)
[2019-01-03] MEDS ORDERED: PRED50TA PO (10:29)
[2019-01-03] MEDS ORDERED: MECL12.52 PO (10:29)
--- NOTE | 2019-01-03 10:41 | PDOC3 ---
Discharge Summary Visit Information Date of Admission: January 01, 2019 Date of Discharge: January 03, 2019 Admitting Diagnosis: Vertigo Final Diagnosis Problems Medical Problems: (1) Tinnitus/ Vestibular neuronitis Status: Acute (2) Vertigo (3) Tobacco abuse and COPD (4) Unintentional weight loss - CT unremarkable (5) Transaminitis - consistent with alcoholic hepatitis Brief Hospital Course Allergies Allergies Coded Allergies Type Severity Reaction Last Updated Verified Silver Allergy Severe RASH AND BLISTERS 08/31/14 Yes copper Allergy Severe RASH AND BLISTERS 08/31/14 Yes gold Au 198 Allergy Severe RASH AND BLISTERS 08/31/14 Yes iron Allergy Severe RASH AND BLISTERS 08/31/14 Yes nickel Allergy Severe RASH AND BLISTERS 08/31/14 Yes tolnaftate Allergy Intermediate HIVES, RED RASH, RED BUMPS 08/31/14 Yes Vital Signs Vital Signs Date Time Temp Pulse Resp B/P (MAP) Pulse Ox O2 Delivery O2 Flow Rate FiO2 01/03/19 07:20 97.6 65 18 129/86 (100) 98 Room Air 97.6 Gen.: well-developed well-nourished in no apparent distress Head: Normal shape atraumatic Eyes: Pupils equal reactive to light and accommodation, normal conjunctivae and lids Ears: Normal shape Nose: Normal shape no trauma Mouth: No exudates of the back of throat no thrush no lesions Neck: Supple no JVD no carotid bruit or lymphadenopathy no thyromegaly Chest: Lungs clear to auscultation with good inspiratory effort no crackles rales or rhonchi Cardiovascular: S1-S2 regular rhythm no murmurs gallops or rubs Abdomen: Bowel sounds present soft nontender no hepatosplenomegaly appreciated sign Extremities: No clubbing no cyanosis no edema peripheral pulses palpated bilaterally Neurological: Alert awake oriented in person time place and situation, cranial nerves II through XII intact, no motor or sensory deficits appreciated Psych: Appropriate mood, cooperative Lab Results Laboratory Tests Test 01/01/19 11:20 01/01/19 17:05 01/01/19 20:30 01/02/19 03:53 White Blood Count 3.4 x10^3/uL (4.0-11.0) Red Blood Count 5.10 x10^6/uL (4.30-5.70) Hemoglobin 15.1 g/dL (13.0-17.5) Hematocrit 45.9 % (39.0-53.0) Mean Corpuscular Volume 90 fL (79-100) Mean Corpuscular Hemoglobin 30 pg (25-35) Mean Corpuscular Hemoglobin Concent 33 g/dL (31-37) Red Cell Distribution Width 18.1 % (11.5-14.5) Platelet Count 156 x10^3/uL (140-400) Neutrophils (%) (Auto) 55 % (31-73) Lymphocytes (%) (Auto) 32 % (24-48) Monocytes (%) (Auto) 12 % (0-9) Eosinophils (%) (Auto) 0 % (0-3) Basophils (%) (Auto) 1 % (0-3) Neutrophils # (Auto) 1.9 x10^3uL (1.8-7.7) Lymphocytes # (Auto) 1.1 x10^3/uL (1.0-4.8) Monocytes # (Auto) 0.4 x10^3/uL (0.0-1.1) Eosinophils # (Auto) 0.0 x10^3/uL (0.0-0.7) Basophils # (Auto) 0.0 x10^3/uL (0.0-0.2) Sodium Level 134 mmol/L (136-145) 133 mmol/L (136-145) Potassium Level 4.7 mmol/L (3.5-5.1) 3.8 mmol/L (3.5-5.1) Chloride Level 97 mmol/L (98-107) 97 mmol/L (98-107) Carbon Dioxide Level 27 mmol/L (21-32) 24 mmol/L (21-32) Anion Gap 10 (6-14) 12 (6-14) Blood Urea Nitrogen 3 mg/dL (8-26) 5 mg/dL (8-26) Creatinine 0.7 mg/dL (0.7-1.3) 0.6 mg/dL (0.7-1.3) Estimated GFR (Cockcroft-Gault) 113.2 135.2 BUN/Creatinine Ratio 4 (6-20) 8 (6-20) Glucose Level 93 mg/dL (70-99) 143 mg/dL (70-99) Calcium Level 9.2 mg/dL (8.5-10.1) 8.5 mg/dL (8.5-10.1) Phosphorus Level 3.3 mg/dL (2.6-4.7) Magnesium Level 1.9 mg/dL (1.8-2.4) Total Bilirubin 0.9 mg/dL (0.2-1.0) 0.7 mg/dL (0.2-1.0) Aspartate Amino Transf (AST/SGOT) 127 U/L (15-37) 72 U/L (15-37) Alanine Aminotransferase (ALT/SGPT) 74 U/L (16-63) 57 U/L (16-63) Alkaline Phosphatase 98 U/L (46-116) 87 U/L (46-116) Troponin I Quantitative < 0.017 ng/mL (0.000-0.055) < 0.017 ng/mL (0.000-0.055) < 0.017 ng/mL (0.000-0.055) Total Protein 6.6 g/dL (6.4-8.2) 5.7 g/dL (6.4-8.2) Albumin 3.2 g/dL (3.4-5.0) 2.6 g/dL (3.4-5.0) Albumin/Globulin Ratio 0.9 (1.0-1.7) 0.8 (1.0-1.7) Vitamin B12 Level 777 pg/mL (247-911) Thyroid Stimulating Hormone (TSH) 1.447 uIU/mL (0.358-3.74) Triglycerides Level 34 mg/dL (0-150) Cholesterol Level 188 mg/dL (0-200) LDL Cholesterol, Calculated 62 mg/dL (0-100) VLDL Cholesterol, Calculated 7 mg/dL (0-40) Non-HDL Cholesterol Calculated 69 mg/dL (0-129) HDL Cholesterol 119 mg/dL (40-60) Cholesterol/HDL Ratio 1.6 Test 01/02/19 09:30 Urine Opiates Screen Neg (NEG) Urine Methadone Screen Neg (NEG) Urine Barbiturates Neg (NEG) Urine Phencyclidine Screen Neg (NEG) Urine Amphetamine/Methamphetamine Neg (NEG) Urine Benzodiazepines Screen Neg (NEG) Urine Cocaine Screen Neg (NEG) Urine Cannabinoids Screen Pos (NEG) Urine Ethyl Alcohol Negh (NEG) Brief Hospital Course Mr Cantor is a 63 year old male w/ PMHx heavy ETOH use, R wet macular degeneration, chronic LBP who presents with tinnitus and right ear hearing loss for 3 days (started Saturday) that progressed to vertigo this morning suddenly at 0430. He feels temporarily confused when this occurs as well. Physical exam showed rotatory nystagmus on Krzysztof maneuver to right and decreased hearing on right, cleaned both ears of cerumen with no improvement. Test of skew negative. CT of head showed evidence of small vessel disease but no acute abnormalities. EKG was unremarkable. CBC, CMP and troponin negative. AST and ALT elevated in 2:1 ratio. Patient was given meclizine and dexamethasone without improvement of his symptoms. Discussed with patient that his symptoms are likely due to a peripheral etiology of vertigo such as BPPV or labyrinthitis however it would be beneficial for him to receive further evaluation as an inpatient especially g iven his persistent vertigo and unsteady gait. He has a history of osteoporosis and agrees that he does not want to have another fracture from possibly falling at home. On further ROS he notes he has lost 20-25# over the past few months, and has been losing his appetite more lately. He is a smoker of cigars and cigarillos, stopped cigarettes about 6 years ago, drinks a 6-pack [place] light or more of beer per day and had colonoscopy over 10 years ago. Patient was admitted to the medical floor where she was evaluated by neurology. Imaging studies didn't not reveal an acute central etiology for his symptoms recommendations were to have an ENT consultation the outpatient setting by our neurology network relations consultant. Patient's symptoms improved slightly to maneuvers may help him reassurance has been provided regarding day chronicity of the condition and I will provide him with meclizine for symptomatically relief and also a pulse steroid course of 5 days with prednisone. Signs and symptoms of alarm discussed prior to discharge, he is much improved from the clinical standpoint of view and now is able to walk and he has a walker at home and other DME tools that he can utilize. All of his concerns were addressed to the best of my abilities he is hemodynamically stable and in good spirits to be discharged home area as part of his workup he had a chest abdomen and pelvis CT that did not reveal lymph nodes masses or other concerning findings Greater than 35 minutes were spent in the discharge process the patient credit support counselor ing coronation of care and for a safe discharge Discharge Information Condition at Discharge: Improved Follow Up: Weeks Disposition/Orders: D/C to Home Scheduled Celecoxib (Celebrex) 200 Mg Capsule, 200 MG PO DAILY for arthritis pain for 30 Days, Ref 0 (Reported) Last dose given: 8:30 a.m. Next dose due: 09-04-14 8:30 a.m. Entered as Reported by: MAGNOLIA CALDWELL on 08/31/14 0703 Ferrous Sulfate (Iron Supplement) 325 Mg Tablet, 1 TAB PO DAILY for anemia, #30 Ref 10 (Reported) Last dose given: Not taken whil in hosp. May resume at home as directed Entered as Reported by: MAGNOLIA CALDWELL on 08/31/14 0703 Last Action: Continued on 01/01/191620 by SARBJIT RAM MD Oxycodone/Apap 5-325 (Percocet 5-325 Mg Tablet ) 1 Each Tablet, 1-2 TAB PO Q4- 6HRS, #40 (Reported) Entered as Reported by: FLORENCE SANCHEZ on 09/03/14 1024 Last Action: Continued on 01/01/191620 by SARBJIT RAM MD Prednisone (Prednisone) 50 Mg Tablet, 1 TAB PO DAILY for vestibular neuritis, #5 Prescribed by: DAVID SCHAEFFER MD on 01/03/19 1029 Sertraline Hcl (Sertraline Hcl) 50 Mg Tablet, 50 MG PO HS for ANTI-DEPRESSANT, Ref 0 (Reported) Last dose given: 09-02-14 9:00 p.m. Next dose due: rosa Entered as Reported by: HAYLEY GOMES on 06/23/14 1700 Last Action: Continued on 01/01/191620 by SARBJIT RAM MD [Calcium] , 1,200 MG PO DAILY for calcium supplement, (Reported) Last dose given: 8:30 a.m. Next dose due: 09-04-14 8:30 a.m. Entered as Reported by: JOSEPH PARNELL on 08/05/14 1721 Scheduled PRN Meclizine Hcl (Meclizine Hcl) 12.5 Mg Tablet, 25 MG PO PRN Q6HRS PRN for D IZZINESS for 30 Days, #60 Prescribed by: DAVID SCHAEFFER MD on 01/03/19 1029 Warfarin Sodium (Coumadin) 5 Mg Tablet, 1 TAB PO 1X PRN for blood thinner, #90 Ref 1 (Reported) Last dose given: Next dose due: 09-04-14 5:00 p.m. Entered as Reported by: MAGNOLIA CALDWELL on 08/31/14 0703 [Hydrocodone/Acetaminophen] 1 TAB TABLET, 1 TAB PO PRN Q3HRS PRN for PAIN Prescribed by: ELEUTERIO MILLER MD on 06/30/14 1332 Miscellaneous Medications Cholecalciferol (Vitamin D3) (Vitamin D3) 5,000 Unit Tablet, 5,000 UNIT PO for Vit. supplement, (Reported) Last dose given: 8:30 a.m. Next dose due: 09-04-14 8:30 a.m. Entered as Reported by: JOSEPH PARNELL on 08/05/14 1720 Last Action: Converted on 01/01/19 1621 by SARBJIT RAM MD Multivits-Min/Fa/Lycopene/Lut (Centrum Silver Tablet) 1 Each Tablet, 1 EACH PO for vit. supplement, (Reported) Last dose given: 8:30 a.m. Next dose due: 09-04-14 8:30 a.m. Entered as Reported by: JOSEPH PARNELL on 08/05/14 1722 Vit A/Vit C/Vit E/Zinc/Copper (Preservision Areds Softgel) 1 Each Capsule, 1 EACH PO for Vit. supplement, (Reported) Not taken while in hosp. May resume at home as directed Entered as Reported by: HAYLEY GOMES on 06/23/14 1700 DAVID SCHAEFFER MD January 03, 2019 10:40
[2019-01-03 10:42] VITALS: BP 110/77
--- NOTE | 2019-01-03 15:28 | PDOC ---
PROGRESS NOTES Assessment Assessment Dizziness x 1 day before admission. Vertigo x 1 day. Ataxia x 1 day. Right side hearing loss x 3 day. Elevated hepatic enzymes. Drinking > 50 years. No evidence of acute CVA this time. RECOMMENDATIONS/PLAN: Vit B1 100 mg daily. Treat medical diseases. Alcohol abstinence. See ENT specialist. Patient education for marijuana abstinence. Discussed with his daughter in detail at bedside on 01/02/19. FU with PCP. HISTORY OF THE PRESENT ILLNESS: This is a 63-year-old male w/ PMHx heavy ETOH use/abuse about 6 bees a day since teenage age. He stated he suddenly lost hearing in his right ear 3 days ago and unable to hear since. He developed symptoms of dizziness, vertigo, gait unsteadiness, ataxia, vertigo feeling room spinning and self spinning since this morning, so he came to the ER of [facility] for medical attention. He stated his symptoms became worse when he turned his head to the right side. Neurology noted consultation request after 5:00 pm. His symptoms of dizziness and vertigo improved on 01/02/19. Past Medical History Cardiovascular: No pertinent hx Pulmonary: No pertinent hx GI: No pertinent hx Heme/Onc: No pertinent hx Hepatobiliary: No pertinent hx Psych: No pertinent hx Musculoskeletal: low back pain Rheumatologic: No pertinent hx Infectious disease: No pertinent hx ENT: Other (Macular degeneration) Renal/: No pertinent hx Endocrine: No pertinent hx Dermatology: No pertinent hx Past Surgical History Total knee replacement (Left), Tonsillectomy Family History No Significant Social History Smoke: 1 pack per day since teenage age, but quit smoking several years ago, and then chew tobaccos. ALCOHOL: heavy, about 6 beers a day for more than 50 years. Drugs: None Allergies Coded Allergies: Silver (Verified Allergy, Severe, RASH AND BLISTERS, 08/31/14) METALS copper (Verified Allergy, Severe, RASH AND BLISTERS, 08/31/14) METALS gold Au 198 (Verified Allergy, Severe, RASH AND BLISTERS, 08/31/14) ALL METAL iron (Verified Allergy, Severe, RASH AND BLISTERS, 08/31/14) ALL METAL nickel (Verified Allergy, Severe, RASH AND BLISTERS, 08/31/14) ALL METALS tolnaftate (Verified Allergy, Intermediate, HIVES, RED RASH, RED BUMPS, 1/13/15) MEDICATIONS: Refer to MAR REVIEW OF SYSTEMS: Constitutional: No cachexia. Head: No traumatic brain or head injury. Skin: No edema, or rash. Ear: Hearing loss 3 days ago, tinnitus. Eyes: No vision loss or color blindness. Nose: No bleeding or purulent discharges. Hearing: Right side hearing loss. Neck: No injury. Cardiac: No MT, arrhythmia. Pulmonary: smoking in past.. GI: No GI ulcer, GI bleeding. Urinary/genital: No dysuria, incontinence, urinary retention. Endocrinologic: No cousin face, craniofacial dysmorphism, polydactyly. Skeletomuscular: No muscular atrophy, deformity. Neurological: see HP. Psychiatric: alcohol use/abuse. Otherwise, not [id number] review of systems. PHYSICAL EXAMINATION: General appearance is in subacute distress. HEENT: Normocephalic and nontraumatic. Eyes, nose, ears, and throat are unremarkable. Neck is supple. No lymphadenopathy. No crepitus. Cardiovascular: S1, S2, regular rate and rhythm. Pulmonary: Clear to auscultation bilaterally. Abdomen: Bowel sounds are positive. Abdomen is soft, nontender, and nondistended. Extremities: No rash, lesions, or edema. No restriction of range of motion NEUROLOGICAL EXAMINATION: Awake. Oriented to time, place and person. PERRL. EOMI. CN: no focal findings. Muscle tone: within normal. Muscle strength: 5 DTR: 2 Plantar reflex: Flexor response bilaterally Gait: Able to walk. Sensory exam: no abnormal findings. No obvious cerebellar signs elicited. F-T-N test fine. Objective Objective Vital Signs Date Time Temp Pulse Resp B/P (MAP) Pulse Ox O2 Delivery O2 Flow Rate FiO2 01/03/19 10:42 98.0 51 19 110/77 (88) 100 Room Air 98.0 Intake and Output 01/03/19 07:00 Intake Total 800 ml Output Total 500 ml Balance 300 ml Intake Oral 800 ml Output Urine Total 500 ml # Voids 4 Vitals Signs Vitals VS - Last 72 Hours, by Label Date Time Temp Pulse Resp B/P (MAP) Pulse Ox O2 Delivery O2 Flow Rate FiO2 01/03/19 10:42 98.0 51 19 110/77 (88) 100 Room Air 98.0 01/03/19 08:00 Room Air 01/03/19 07:20 97.6 65 18 129/86 (100) 98 Room Air 97.6 01/03/19 03:35 98.4 64 16 120/76 (91) 96 Room Air 98.4 01/02/19 23:00 98.5 71 18 111/76 (88) 95 Room Air 98.5 01/02/19 19:20 97.9 66 18 123/85 (98) 96 Room Air 97.9 01/02/19 15:58 98.1 70 18 125/81 (96) 97 Room Air 98.1 01/02/19 11:27 97.4 57 18 126/81 (96) 100 Room Air 97.4 01/02/19 07:00 98.3 59 20 121/82 (95) 96 Room Air 98.3 Medication Medications Current Medications Meclizine HCl (Antivert) 25 mg PRN Q6HRS PRN PO DIZZINESS Last administered on 01/03/19at 09:43; Start 01/03/19 at 08:00 Comment Review of Relevant I have reviewed the following items axel (where applicable) has been applied. LENY RAMÍREZ MD January 03, 2019 15:28
--- NOTE | 2019-01-03 15:49 | NUR ---
pt was dischagred home with self care. he was given two scripts to take the pharm, prednisone and meclizine. Wheeled down to the main entrance and picked up by his daughter. Hayden Padilla RN
== END 2019-01-03 15:50 | disposition home or self-care (01) | DRG 149 ==
LOC: ER 10:10 → 6 SOUTH 13:40
PROVIDERS: ADMIT Family Medicine; ATTEND Family Medicine
DX: H81.10 Benign paroxysmal vertigo, unspecified ear (principal); H93.19 Tinnitus, unspecified ear; H81.20 Vestibular neuronitis, unspecified ear; G89.29 Other chronic pain; M81.0 Age-related osteoporosis without current pathological fracture; F17.200 Nicotine dependence, unspecified, uncomplicated; Z96.652 Presence of left artificial knee joint; K70.10 Alcoholic hepatitis without ascites; H35.3210 Exudative age-related macular degeneration, right eye, stage unspecified; H83.09 Labyrinthitis, unspecified ear; J44.9 Chronic obstructive pulmonary disease, unspecified; H91.91 Unspecified hearing loss, right ear; Z71.6 Tobacco abuse counseling; Z91.048 Other nonmedicinal substance allergy status
CPT/HCPCS: 36415; 70450; 70553; 71260; 74177; 80053; 80061; 80307; 82607; 83735; 84100; 84443; 84484; 85025; 93005; 96360; 96361; A9575; J1650; J7030; J8540; J8597; Q9966; Q9967; 97535; 99285-25

== ENCOUNTER 2020-05-08 21:30 | Emergency (ER) | payer MEDICARE, BC ==
[~2020-05-08] VITALS: Ht 188 cm; Wt 68.0 kg
[~2020-05-08 21:30] MED LIST changes: +MECL12.573 PO; +PRED50TA PO; -WARF-78 PO; +WARF5TAB2 PO
[2020-05-08 22:10] VITALS: BP 147/96
[2020-05-08] MEDS ORDERED: DIPH,PERTUSS(ACELL),TET VAC/PF 0.5 ML SYRINGE. VAX IM ONE (23:45)
--- NOTE | 2020-05-09 00:07 | PHYS DOC ---
Past Medical History Past Medical History: Other Additional Past Medical Histor: CHRONIC BACK PAIN, RIGHT MACULAR DEGENERATION DISEASE Past Surgical History: Knee Replacement, Tonsillectomy Additional Past Surgical Histo: RIGHT SHOULDER, HERNIA, HYDROCELE Smoking Status: Current Every Day Smoker Alcohol Use: Heavy Drug Use: Marijuana General Adult EDM: Chief Complaint: WRIST PAIN HPI: HPI: Patient is a 64 year old male who presents to the emergency department with complaints of medial right wrist pain and swelling after a fall today. Patient denies any loss of consciousness, head , neck, or back pain after the fall. He states that he was carrying shingles when he tripped and fell onto his driveway. He currently denies any numbness, tingling, or weakness of the right wrist. He complains of a small skin tear to his right elbow. Patient is unsure when his last tetanus shot was. He currently rates his pain a 5 out of 10 on the pain scale, he denies any alleviating factors, pain is worse with movement and palpation. Patient admits to drinking some beer and whiskey at home throughout the day today. Review of Systems: Review of Systems: Complete ROS is negative unless otherwise stated in the HPI. Heart Score: Risk Factors: Risk Factors: DM, Current or recent (<one month) smoker, HTN, HLP, family history of CAD, obesity. Risk Scores: Score 0 - 3: 2.5% MACE over next 6 weeks - Discharge Home Score 4 - 6: 20.3% MACE over next 6 weeks - Admit for Clinical Observation Score 7 - 10: 72.7% MACE over next 6 weeks - Early Invasive Strategies Current Medications: Current Medications Medications (Trade) Dose Ordered Sig/Carlin Start Time Stop Time Status Last Admin Dose Admin Diphtheria/ Tetanus/Acell Pertussis (ADACEL TDap SYRINGE) 0.5 ml ONCE ONCE 05/08/20 23:45 05/08/20 23:46 DC 05/08/20 23:50 0.5 ML Allergies: Allergies: Allergies Coded Allergies Type Severity Reaction Last Updated Verified Silver Allergy Severe RASH AND BLISTERS 08/31/14 Yes copper Allergy Severe RASH AND BLISTERS 08/31/14 Yes gold Au 198 Allergy Severe RASH AND BLISTERS 08/31/14 Yes iron Allergy Severe RASH AND BLISTERS 08/31/14 Yes nickel Allergy Severe RASH AND BLISTERS 08/31/14 Yes tolnaftate Allergy Intermediate HIVES, RED RASH, RED BUMPS 08/31/14 Yes Physical Exam: PE: Constitutional: Well developed, well nourished, no acute distress, non-toxic appearance, odor of alcohol noted. [] HENT: Normocephalic, atraumatic, bilateral external ears normal, nose normal. [] Eyes: PERRLA, EOMI, conjunctiva normal, no discharge. [] Neck: Normal range of motion, no stridor. [] Cardiovascular:Heart rate regular rhythm Lungs & Thorax: Respirations even and unlabored, no retractions, no respiratory distress Skin: Warm, dry, no erythema, no rash; V-shaped skin tear to lateral right elbow, no active bleeding, no visible foreign body [] Extremities: Right wrist: Lateral tenderness to palpation without crepitus or obvious deformity, 1+ edema, PMS intact, no cyanosis Neurologic: Alert and oriented X 3, no focal deficits noted. [] Psychologic: Affect normal, judgement normal, mood normal. [] Current Patient Data: Vital Signs: Vital Signs Date Time Temp Pulse Resp B/P (MAP) Pulse Ox O2 Delivery O2 Flow Rate FiO2 05/08/20 22:10 83 18 147/96 (113) 100 Room Air EKG: EKG: [] Radiology/Procedures: Radiology/Procedures: PROCEDURE: WRIST 3V RIGHT Three-view right wrist radiographs 05/08/2020 CLINICAL HISTORY: Right wrist pain post fall. PA, lateral and oblique digital radiographs of right wrist were obtained. There is diffuse osteopenia of the visualized bony structures. A questionable nondisplaced fracture of the distal right radial metaphysis is noted. No additional fracture is seen. No dislocation is noted. Mild to moderate degenerative changes are seen involving the radiocarpal joint, the mid carpal joint and first carpal metacarpal joint. IMPRESSION: Question nondisplaced fracture of the distal right radial metaphysis. [] Course & Med Decision Making: Course & Med Decision Making Pertinent Labs and Imaging studies reviewed. (See chart for details) Patient is a 64-year-old male who presents emergency department with complaints of right wrist pain and a right elbow skin tear. X-ray revealed a possible nondisplaced fracture of the distal radial metaphysis. The patient was placed in a Velcro wrist splint. I offered to prescribe hydrocodone for the patient however the patient reports that he does not take narcotics due to past history of narcotic addiction. I encouraged patient to take up to 4 g of Tylenol daily as needed for pain, recommend ice, elevation, and wearing the splint. I provided the patient with 's information for follow-up. Encouraged the patient to return to the emergency room if symptoms worsen. Patient verbalized an understanding of home care, medications, follow-up, and return to ED instructions and was in agreement with the plan of care. [] Dragon Disclaimer: Dragon Disclaimer: This electronic medical record was generated, in whole or in part, using a voice recognition dictation system. Departure Departure Impression: Primary Impression: Acute pain of right wrist Additional Impressions: Skin tear of right elbow without complication Qualified Codes: S51.011A - Laceration without foreign body of right elbow, initial encounter Need for Tdap vaccination Disposition: HOME, SELF-CARE Condition: STABLE Referrals: JANETTE COLBERT MD (PCP) ELEUTERIO FERGUSON MD Patient Instructions: Skin Tear Care, [id number], VIS, Tetanus, Diphtheria (Td); Tetanus, Diphtheria, Pertussis (Tdap) - CDC, Wrist Pain, [id number] Additional Instructions: Take Tylenol (Acetaminophen) as needed for pain, up to 4000 mg a day. Recommend application of ice, elevation, and rest of affected extremity. Wear the splint that was placed until follow up appointment. The x-ray did not reveal a definite fracture, but there may be a non-displaced fracture of the distal radial metaphysis. Follow-up with Dr. Ferguson in 1-2 days for repeat evaluation, return to the ER if your symptoms worsen. Justicifation of Admission Dx: Justifications for Admission: Justification of Admission Dx: N/A Splinting Splinting : Location: R wrist Pre-Made Type: velcro Pre-Proc Neuro Vasc Exam: normal Post-Proc Neuro Vasc Exam: normal, unchanged from pre-exam HAYLEY CORRALES APRN May 09, 2020 00:07
== END 2020-05-09 00:20 | disposition home or self-care (01) ==
LOC: ER 21:30
DX: S51.011A Laceration without foreign body of right elbow, initial encounter (principal); M25.531 Pain in right wrist; R60.0 Localized edema; G89.29 Other chronic pain; F17.200 Nicotine dependence, unspecified, uncomplicated; F12.90 Cannabis use, unspecified, uncomplicated; F10.10 Alcohol abuse, uncomplicated; Z98.890 Other specified postprocedural states; Z90.89 Acquired absence of other organs; Z88.8 Allergy status to other drugs, medicaments and biological substances; W01.0XXA Fall on same level from slipping, tripping and stumbling without subsequent striking against object, initial encounter; Y93.89 Activity, other specified; Y92.89 Other specified places as the place of occurrence of the external cause; Y99.8 Other external cause status
CPT/HCPCS: 29125; 73110; 90471; 90715; 99283